=== PATIENT | male | born 1970 | race African-American/Black ===

== ENCOUNTER 2022-12-23 06:43 | Day surgery (SDC) | payer BC, SELFPAY ==
[2022-12-23] MEDS ORDERED: Ringers Lactate 1,000 ML IV ONE (07:34)
[2022-12-23] MEDS ORDERED: propofoL 200 MG/20 ML VIAL IV ONE ×3 (10:53→10:54)
[2022-12-23] MEDS ORDERED: LIDOCAINE 1% MPF 5 ML VIAL ONE (10:54)
[2022-12-23 12:01] VITALS: TEMP 97.7
[2022-12-23 12:04] VITALS: BP 112/69; O2SAT 98
== END 2022-12-23 11:50 | disposition home or self-care (01) ==
LOC: PRE 06:43 → OR 11:50
PROVIDERS: ATTEND Internal Medicine Gastroenterology
PROC: 0DBL8ZX Excision of Transverse Colon, Via Natural or Artificial Opening Endoscopic, Diagnostic (ICD-10-PCS; 2022-12-23)
PROC: 0DBM8ZX Excision of Descending Colon, Via Natural or Artificial Opening Endoscopic, Diagnostic (ICD-10-PCS; 2022-12-23)
PROC: 0DBH8ZX Excision of Cecum, Via Natural or Artificial Opening Endoscopic, Diagnostic (ICD-10-PCS; principal; 2022-12-23 08:15)
DX: Z12.11 Encounter for screening for malignant neoplasm of colon (principal); K64.8 Other hemorrhoids; K63.5 Polyp of colon
CPT/HCPCS: 88305; 45380; J2704 ×2; J2001; J7120

== ENCOUNTER 2024-04-03 12:39 | Inpatient (IN) | payer BC ==
--- OUTSIDE RECORDS SUMMARY | 2024-04-03 12:54 | XMS REPORT | Continuity of Care Document ---
Author Name Unknown Address [address] [facility] [address] [place] [address] [facility] thconnect Address [address] [facility] [address] [place] [address] Care Team Providers Care Computer Hardware Designer Name Role Phone KALINA BOBBI Nunes Primary Care Physician Unavailab Bridget Meek Attending Clinician Unavailable Javi Souza Attending Clinician Unavailabl surjit Connor RN, Gaby Woodard Attending Clinician Unavailab MILES Gatica Attending Clinician Unavailable Only, Ang Db Test Attending Clinician Unavailabl e Unknown, Attending Attending Clinician Unavailab le Doctor Unassigned, Abernathy Attending Clinician U roge Swift MD, Wes Mendoza Attending Clinician [phone] VICTOR HUGO GREEN Attending Clinician Unavailable Peter NEW, Victor Hugo Attending Clinician [phone] Navjot NEW, Lizette Attending Clinician [phone] LIZETTE MORFIN Attending Clinician Unavailable Jaspal Valles Attending Clinician Unavailable Provider, [facility] Attending Clinician Un available Miles Dos Santos Attending Clinician Bridget King Admitting Clinician Unavailable Jaspal Valles Cardiology Admitting Clinician Unavailable VICTOR HUGO GREEN Admitting Clinician Unavailable Payers Payer Name Policy Type Policy Number Effective Date Expirati on Date Source Problems Condition Name Condition Details Condition Category Status Onset Date Resolution Date Last Treatment Date Treating Clinician Comments Source No known active problems No known active problems Disease [facility] Allergies, Adverse Reactions, Alerts Allergy Name Allergy Type Status Severity Reaction(s) Onset Date Inactive Date Treating Clinician Comments Source No Known Allergie s DA Active U 07-26 00:00: 00 [facility] No Known Allergie s DA Active U 07-26 00:00: 00 [facility] NO KNOWN ALLERGIE S Drug Class Active [facility] Social History Social Habit Start Date Stop Date Quantity Comments Source Exposure to SARS-CoV-2 (event) 2022-02-06 00:00:00 2022-02-16 19:17:00 Not sure [facility] Sex Assigned At 1970 00:00:00 1970 00:00:00 [facility] Smoking Status Start Date Stop Date Source Tobacco smoking consumption unknown [facility] Medications Ordered Medication Name Filled Medication Name Start Date Stop Date Current Medication? Ordering Clinician Indication Dosage Frequency Signature (SIG) Comments Components Source ondansetron 4 mg disintegrat ing tablet 12-21 00:00: 00 Yes [id number] 4mg Take 1 tablet by mouth every 4 (four) hours as needed for Nausea and Vomiting (N/V). [facility] traMADoL 50 mg tablet 12-21 00:00: 00 Yes [id number] 50mg Take 1 tablet by mouth every 6 (six) hours as needed for Pain (scale 4-6). Indication s: acute pain [facility] bromphenira mine-pseudo ephedrine-D M (BROMFED DM) 2-30-10 mg/5 mL syrup 1- 00:00: 00 Yes [id number] 5mL Take 5 mL by mouth 4 (four) times daily as needed for Congestion /Allergies or Cold symptoms. [facility] Vital Signs Vital Name Observation Time Observation Value Comments Tory hidalgo Systolic blood pressure 2021-12-21 13:56:00 117 mm[Hg] [facility] Diastolic blood pressure 2021-12-21 13:56:00 77 mm[Hg] [facility] Heart rate 2021-12-21 13:56:00 79 /min Unive [facility] Body temperature 2021-12-21 13:56:00 36.39 Tiffanie [facility] Respiratory rate 2021-12-21 13:56:00 14 /min [facility] Body height 2021-12-21 13:56:00 177.8 cm [facility] Body weight 2021-12-21 13:56:00 108.863 kg [facility] BMI 2021-12-21 13:56:00 34.44 kg/m2 [facility] Oxygen saturation in Arterial blood by Pulse oximetry 2021-12-21 13:56:00 99 /min [facility] Diastolic blood pressure 2020-05-27 23:55:00 86 mm[Hg] [facility] Heart rate 2020-05-27 23:55:00 72 /min Unive [facility] Body temperature 2020-05-27 23:55:00 37.28 Tiffanie [facility] Respiratory rate 2020-05-27 23:55:00 18 /min [facility] Body height 2020-05-27 23:55:00 179.1 cm [facility] Body weight 2020-05-27 23:55:00 113.399 kg [facility] BMI 2020-05-27 23:55:00 35.36 kg/m2 [facility] Oxygen saturation in Arterial blood by Pulse oximetry 2020-05-27 23:55:00 95 /min [facility] Systolic blood pressure 2020-05-27 23:55:00 121 mm[Hg] [facility] Diastolic blood pressure 2020-05-27 23:55:00 86 mm[Hg] [facility] Heart rate 2020-05-27 23:55:00 72 /min [facility] Body temperature 2020-05-27 23:55:00 37.28 Tiffanie [facility] Respiratory rate 2020-05-27 23:55:00 18 /min [facility] Body height 2020-05-27 23:55:00 179.1 cm [facility] Body weight 2020-05-27 23:55:00 113.399 kg [facility] BMI 2020-05-27 23:55:00 35.36 kg/m2 [facility] Oxygen saturation in Arterial blood by Pulse oximetry 2020-05-27 23:55:00 95 /min [facility] Systolic blood pressure 2020-05-27 23:55:00 121 mm[Hg] [facility] Procedures Procedure Date / Time Performed Performing Clinicia n Source [id number] 2023-03-09 00:00:00 [facility] [id number] 2023-03-09 00:00:00 [facility] [id number] 2023-03-09 00:00:00 [facility] [id number] 2023-03-09 00:00:00 [facility] ASSIGNMENT OF BENEFITS 2022-02-17 00:17:43 Docto r Unassigned, Abernathy [facility] NH APPLY FOREARM SPLINT,STATIC 2021-12-21 15:06:28 Victor Hugo Green [facility] XR FOREARM 2 VW RIGHT 2021-12-21 14:20:00 Armen Green [facility] XR HAND 3+ VW RIGHT 2021-12-21 14:20:00 Kulwant Green [facility] CONSENT/REFUSAL FOR DIAGNOSIS AND TREATMENT 2021-12-21 13:51:39 Doctor Unassigned, Abernathy [facility] NOTICE OF PRIVACY PRACTICES 2021-12-21 13:51:19 Doctor Unassigned, Abernathy [facility] Encounters Start Date/Time End Date/Time Encounter Type Admission Type Attending Clinicians Care Facility Care Department Encounter ID Source 2023-03-07 17:11:00 2023-03-10 13:20:00 Inpatient EM Bridget King [facility] INTE.02 [id number] [facility] 2022-06-22 11:45:00 2022-06-22 11:45:00 Inpatient Javi Montgomery [facility] SURG [id number] [facility] 2022-02-17 00:00:00 2022-02-17 00:00:00 Letter (Out) Gaby Connor [facility] 1.840.114 350.1.13.10 4.2.7.2.686 [id number] [facility] 2022-02-16 19:15:00 2022-02-16 19:32:22 Outpatient MILES AC [facility] [id number] [facility] 2022-02-16 19:15:00 2022-02-16 19:30:00 Laboratory Only Only, Ang Db Test Unknown, Attending [facility] 1..840.114 350.1.13.10 4.2.7.2.686 [id number] [facility] 2022-02-16 00:00:00 2022-02-16 00:00:00 Orders Only Doctor Unassigned, Abernathy [facility] 1.2840.114 350.1.13.10 4.2.7.2.686 [id number] [facility] 2021-12-29 00:00:00 2021-12-29 00:00:00 Telephone Wes Swift [facility] 1..840.114 350.1.13.10 4.2.7.2.686 [id number] [facility] 2021-12-21 08:55:00 2021-12-21 10:20:00 Emergency X VICTOR HUGO GREEN [facility] ERT [id number] [facility] 2021-12-21 08:55:00 2021-12-21 10:20:00 Emergency Victor Hugo Green [facility] 1.840.114 350.1.13.10 4.2.7.2.686 [id number] [facility] 2021-12-21 00:00:00 2021-12-21 00:00:00 Orders Only Doctor Unassigned, Abernathy [facility] 1.2840.114 350.1.13.10 4.2.7.2.686 [id number] [facility] 2021-02-25 00:00:00 2021-02-25 00:00:00 Letter (Out) Gaby Connor [facility] 1.0.114 350.1.13.10 4.2.7.2.686 [id number] [facility] 2021-02-24 19:08:15 2021-02-24 19:23:15 Laboratory Only Only, Crow Morfin Lizette [facility] 1..114 350.1.13.10 4.2.7.2.686 [id number] [facility] 2021-02-24 19:15:00 2021-02-24 19:15:00 Outpatient LIZETTE PEREZ [facility] [id number] [facility] 2020-09-11 21:34:03 2020-09-11 21:34:03 Outpatient Javi Souza [facility] [id number] [facility] 2020-07-27 14:30:00 2020-07-27 14:30:00 Outpatient Jaspal Valles [facility]G [id number] [facility] 2020-05-27 17:31:25 2020-05-27 18:49:11 Urgent Care Provider, [facility] Pavel [facility] Office [facility] 1.0.114 350.1.13.10 4.2.7.2.686 [id number] 2020-05-27 17:31:25 2020-05-27 18:49:11 Urgent Care Provider, [facility] 1.2.840.114 350.1.13.10 4.2.7.2.686 [id number] [facility] 2020-05-27 17:40:00 2020-05-27 17:40:00 Outpatient R MILES BUTLER [facility] [id number] [facility] Results Test Description Test Time Test Comments Results Result Co mments Source PROTHROMBIN [id number] 04:52:00* Test Item Value Reference Range Interpretation Comme nts PROTHROMBIN TIME PATIENT (test code = PTP) 14.8 SECONDS 10.1-12.6 H INTERNATIONAL NORMAL RATIO (test code = INR) 1.3 0.86-1.14 H The INR is to be used only for monitoring oral anticoagulanttherap y. INDICATION INR VALUE -------1. Prophylaxis, deep venous thrombosis, including high risk surgery. 2.0 - 3.0 2. Prophylaxis, deep venous thrombosis, hip surgery, treatment for deep venous thrombosis or pulmonary prevention of systemic embolism in patients with valvular heart disease, atrial fibrillation, tissue heart valve, or acute myocardial infarction. 2.0 - 3.0 3. Mechanical prosthesis heart valves, recurrent systemic embolism. 3.0 - 4.5 PTT [id number] 04:52:00* Test Item Value Reference Range Interpretation Comme nts PTT ACTIVATED (test code = APTT) 29.2 SECONDS 27.2-37.9 CBC W/AUTO [id number] 04:37:00* Test Item Value Reference Range Interpretation Comme nts WHITE BLOOD CELL (test code = WBC) 8.3 K/MM3 3.8-9.8 N RED BLOOD CELL (test code = RBC) 4.81 M/MM3 3.95-5.67 N HEMOGLOBIN (test code = HGB) 13.4 G/DL 12.4-16.7 N HEMATOCRIT (test code = HCT) 41.8 % 35.9-49.5 N MEAN CELL VOLUME (test code = MCV) 87 fL 81.7-96.1 N MEAN CELL HGB (test code = MCH) 27.9 pg 27.6-33.2 N MEAN CELL HGB CONCETRATION (test code = MCHC) 32.1 % 32.9-35.5 L RED CELL DISTRIBUTION WIDTH (test code = RDW) 13.2 % 12.1-15.2 N PLATELET COUNT (test code = PLT) 269 K/MM3 129-368 N MEAN PLATELET VOLUME (test c ode = MPV) 9.6 fl 7.4-10.4 N NEUTROPHIL % (test code = NT%) 81.6 % 43-75 H IMMATURE GRANULOCYTE % (test code = IG%) 0.4 % 0.0-2.0 N LYMPHOCYTE % (test code = LY%) 13.4 % 14-44 L MONOCYTE % (test code = MO%) 4.6 % 4-13 N EOSINOPHIL % (test code = EO%) 0.0 % 0-6 N BASOPHIL % (test code = BA%) 0 % 0-2 N NUCLEATED RBC % (test code = NRBC%) 0.0 % 0-1.0 N NEUTROPHIL # (test code = NT#) 6.78 K/mm3 2.0-7.6 N IMMATURE GRANULOCYTE # (test code = IG#) 0.03 x10 3/uL 0-0.03 N LYMPHOCYTE # (test code = LY#) 1.11 K/mm3 1.0-3.8 N MONOCYTE # (test code = MO#) 0.38 K/mm3 0.1-0.8 N EOSINOPHIL # (test code = EO#) 0.00 K/mm3 0.0-0.2 N BASOPHIL # (test code = BA#) 0 K/mm3 0.0-0.2 N NUCLEATED RBC # (test code = NRBC#) 0.00 K/mm3 0.0-0.1 N PROTHROMBIN [id number] 13:40:00* Test Item Value Reference Range Interpretation Comme nts PROTHROMBIN TIME PATIENT (test code = PTP) 13.2 SECONDS 10.1-12.6 H INTERNATIONAL NORMAL RATIO (test code = INR) 1.2 0.86-1.14 H The INR is to be used only for monitoring oral anticoagulanttherap y. INDICATION INR VALUE -------1. Prophylaxis, deep venous thrombosis, including high risk surgery. 2.0 - 3.0 2. Prophylaxis, deep venous thrombosis, hip surgery, treatment for deep venous thrombosis or pulmonary prevention of systemic embolism in patients with valvular heart disease, atrial fibrillation, tissue heart valve, or acute myocardial infarction. 2.0 - 3.0 3. Mechanical prosthesis heart valves, recurrent systemic embolism. 3.0 - 4.5 PTT [id number] 13:40:00* Test Item Value Reference Range Interpretation Comme nts PTT ACTIVATED (test code = APTT) 33.9 SECONDS 27.2-37.9 N BASIC METABOLIC [id number] 11:55:00* Test Item Value Reference Range Interpretation Comme nts SODIUM (test code = NA) 140 MMOL/L 137-145 N POTASSIUM (test code = K) 4.4 MMOL/L 3.5-5.1 N CHLORIDE (test code = CL) 103 MMOL/L 98-107 N CARBON DIOXIDE (test code = CO2) 31 MMOL/L 22-30 H GLUCOSE (test code = GLU) 76 MG/DL 74-106 N BLOOD UREA NITROGEN (test code = BUN) 18 MG/DL 9-20 N GLOMERULAR FILTRATION RATE (test code = GFR) > 60 The Glomerular Filtration Rate is a calculated parameterbased on serum Creatinine, patient age and sex. GFR valuesless than 60 mL/min/1.73 square meters are indicative ofChronic Kidney Disease. Values less than 15 mL/min/1.73square meters indicate Kidney failure. The calculation forGFR is based on the CKD-EPI (2020) calculation. This formulais race indifferent and is the recommended formula for GFRby the National Kidney Foundation for Adults.The GFR will not calculate if the sex is unknown or if thepatient's age is <18 years. CREATININE (test code = CREAT) 1.00 MG/DL 0.66-1.25 N CALCIUM (test code = CA) 9.4 MG/DL 8.4-10.2 N BASIC METABOLIC [id number] 10:48:00* Test Item Value Reference Range Interpretation Comme nts SODIUM (test code = NA) 140 MMOL/L 137-145 N POTASSIUM (test code = K) 4.0 MMOL/L 3.5-5.1 N CHLORIDE (test code = CL) 101 MMOL/L 98-107 N CARBON DIOXIDE (test code = CO2) 29 MMOL/L 22-30 N GLUCOSE (test code = GLU) 85 MG/DL 74-106 N BLOOD UREA NITROGEN (test code = BUN) 16 MG/DL 9-20 N GLOMERULAR FILTRATION RATE (test code = GFR) > 60 The Glomerular Filtration Rate is a calculated parameterbased on serum Creatinine, patient age and sex. GFR valuesless than 60 mL/min/1.73 square meters are indicative ofChronic Kidney Disease. Values less than 15 mL/min/1.73square meters indicate Kidney failure. The calculation forGFR is based on the CKD-EPI (2020) calculation. This formulais race indifferent and is the recommended formula for GFRby the National Kidney Foundation for Adults.The GFR will not calculate if the sex is unknown or if thepatient's age is <18 years. CREATININE (test code = CREAT) 1.00 MG/DL 0.66-1.25 N CALCIUM (test code = CA) 9.6 MG/DL 8.4-10.2 N RECOLLECTION NEEDED ON 03/08/23 AT 0654 BY [id number]: QNSNOTIFIED PATIENT CARE STAFF: [id number] 10:48:00* Test Item Value Reference Range Interpretation Comme nts MAGNESIUM (test code = MAG) 1.9 MG/DL 1.6-2.3 N RECOLLECTION NEEDED ON 03/08/23 AT 0654 BY [id number]: QNSNOTIFIED PATIENT CARE STAFF: KELBY.SCBC W/AUTO [id number] 06:48:00* Test Item Value Reference Range Interpretation Comme nts WHITE BLOOD CELL (test code = WBC) 5.1 K/MM3 3.8-9.8 N RED BLOOD CELL (test code = RBC) 4.98 M/MM3 3.95-5.67 N HEMOGLOBIN (test code = HGB) 14.4 G/DL 12.4-16.7 N HEMATOCRIT (test code = HCT) 44.2 % 35.9-49.5 N MEAN CELL VOLUME (test code = MCV) 89 fL 81.7-96.1 N MEAN CELL HGB (test code = MCH) 28.9 pg 27.6-33.2 N MEAN CELL HGB CONCETRATION (test code = MCHC) 32.6 % 32.9-35.5 L RED CELL DISTRIBUTION WIDTH (test code = RDW) 13.5 % 12.1-15.2 N PLATELET COUNT (test code = PLT) 240 K/MM3 129-368 N MEAN PLATELET VOLUME (test c ode = MPV) 9.9 fl 7.4-10.4 N NEUTROPHIL % (test code = NT%) 52.8 % 43-75 N IMMATURE GRANULOCYTE % (test code = IG%) 0.2 % 0.0-2.0 N LYMPHOCYTE % (test code = LY%) 33.2 % 14-44 N MONOCYTE % (test code = MO%) 12.2 % 4-13 N EOSINOPHIL % (test code = EO%) 1.4 % 0-6 N BASOPHIL % (test code = BA%) 0.2 % 0-2 N NUCLEATED RBC % (test code = NRBC%) 0.0 % 0-1.0 N NEUTROPHIL # (test code = NT#) 2.69 K/mm3 2.0-7.6 N IMMATURE GRANULOCYTE # (test code = IG#) 0.01 x10 3/uL 0-0.03 N LYMPHOCYTE # (test code = LY#) 1.69 K/mm3 1.0-3.8 N MONOCYTE # (test code = MO#) 0.62 K/mm3 0.1-0.8 N EOSINOPHIL # (test code = EO#) 0.07 K/mm3 0.0-0.2 N BASOPHIL # (test code = BA#) 0.01 K/mm3 0.0-0.2 N NUCLEATED RBC # (test code = NRBC#) 0.00 K/mm3 0.0-0.1 N [id number] 01:35:00* Test Item Value Reference Range Interpretation Comme nts TROPONIN-I (test code = TROPI) < 0.012 NG/ML 0.012-0.033 L [id number] 21:12:00* Test Item Value Reference Range Interpretation Comme nts TROPONIN-I (test code = TROPI) 0.016 NG/ML 0.012-0.033 BASIC METABOLIC [id number] 15:41:00* Test Item Value Reference Range Interpretation Comme nts SODIUM (test code = NA) 140 MMOL/L 137-145 N POTASSIUM (test code = K) 4.2 MMOL/L 3.5-5.1 N CHLORIDE (test code = CL) 104 MMOL/L 98-107 N CARBON DIOXIDE (test code = CO2) 29 MMOL/L 22-30 N ANION GAP (test code = GAP) 11 MMOL/L 14-24 L GLUCOSE (test code = GLU) 83 MG/DL 74-106 N BLOOD UREA NITROGEN (test code = BUN) 10 MG/DL 9-20 N GLOMERULAR FILTRATION RATE (test code = GFR) > 60 The Glomerular Filtration Rate is a calculated parameterbased on serum Creatinine, patient age and sex. GFR valuesless than 60 mL/min/1.73 square meters are indicative ofChronic Kidney Disease. Values less than 15 mL/min/1.73square meters indicate Kidney failure. The calculation forGFR is based on the CKD-EPI (2020) calculation. This formulais race indifferent and is the recommended formula for GFRby the National Kidney Foundation for Adults.The GFR will not calculate if the sex is unknown or if thepatient's age is <18 years. CREATININE (test code = CREAT) 1.00 MG/DL 0.66-1.25 N CALCIUM (test code = CA) 9.3 MG/DL 8.4-10.2 N NT PRO-BRAIN NATRIURETIC [id number] 15:41:00* Test Item Value Reference Range Interpretation Comme nts NT PRO-BRAIN NATRIURETIC PEPTI (test code = PROBNP) 1150.0 pg/mL INTERPRETATION O F RESULTS Results of this test should be used in accordance with the appropriate clinical guidelines and in conjunction with clinical presentation and other diagnostic tests. Clinical guidelines recommend using natriuretic peptides in both Emergency Department (ED) and outpatient settings for diagnosis or exclusion of heart failure (HF). The performance of the [facility] NT-proBNP II test was evaluated separately in each of these settings using published age-independent and age-dependent cutoffs. EMERGENCY DEPARTMENT SETTINGS/INPATIENT: For patients presenting to the ED settings with acute or worsening dyspnea and clinical suspicion of HF, the [facility] NT-proBNP II test results should be interpreted as indicated in the table below. NT-pro BNP II Test Age Group Interpretation of Results Results (pg/mL) <300 All Negative: Heart Failure Unlikely -->=300 to <450 22-<50 [place]: Result >=300 to <900 50-<75 Indeterminate >=300 to <1800 >=75 - Consider other causes of NT-proBNP elevation ---------------->=450 22-<50 >=900 50-<75 Positive: Heart Failure likely >=1800 >=75 OUTPAT IENT SETTINGS: In the outpatient settings, the optimal use of natriuretic peptides is to exclude HF. Therefore, a lower rule-out cutoff which increases sensitivity and negative predictive value is needed, as patients can present with limited, less acute HF symptoms. For ambulatory patients presenting to outpatient facilities with clinical suspicion of HF not previously diagnosed and at least one sign, symptom or risk factor for HF, the VITROSNT-proBNP II test results should be interpreted as indicatedin the table below. NT-pro BNP II Test Age Group Interpretation of Results Results (pg/mL) <125 All Negative: Heart Failure Unlikely ---------------->=125 All Consider Heart Failure as well as other causes* of NT-proBNP elevation. [id number] 15:41:00* Test Item Value Reference Range Interpretation Comme [facility] TROPONIN-I (test code = TROPI) < 0.012 NG/ML 0.012-0.033 L PROTHROMBIN [id number] 15:29:00* Test Item Value Reference Range Interpretation Comme [facility] PROTHROMBIN TIME PATIENT (test code = PTP) 12.2 SECONDS 10.1-12.6 N INTERNATIONAL NORMAL RATIO (test code = INR) 1.1 0.86-1.14 N The INR is to be used only for monitoring oral anticoagulanttherap y. INDICATION INR VALUE -------1. Prophylaxis, deep venous thrombosis, including high risk surgery. 2.0 - 3.0 2. Prophylaxis, deep venous thrombosis, hip surgery, treatment for deep venous thrombosis or pulmonary prevention of systemic embolism in patients with valvular heart disease, atrial fibrillation, tissue heart valve, or acute myocardial infarction. 2.0 - 3.0 3. Mechanical prosthesis heart valves, recurrent systemic embolism. 3.0 - 4.5 PTT [id number] 15:29:00* Test Item Value Reference Range Interpretation Comme nts PTT ACTIVATED (test code = APTT) 31.8 SECONDS 27.2-37.9 N [id number] 15:29:00* Test Item Value Reference Range Interpretation Comme nts D-DIMER (test code = DDIMER) 240 ng/mLFEU 0-499 N Negative Predict tenisha Value cutoff for DVT & PE: < 500 ng/mL FEUInterpretation: A value of < 500 ng/mL FEU has a NegativePredictive Value in ruling out a DVT or PE diagnosis.A value of 500 ng/mL or greater is considered Positive.Positive result cannot be used for the diagnosis of DVT andPE without using of standard radiological procedures. CBC W/O [id number] 15:10:00* Test Item Value Reference Range Interpretation Comme nts WHITE BLOOD CELL (test code = WBC) 5.1 K/MM3 3.8-9.8 N RED BLOOD CELL (test code = RBC) 4.80 M/MM3 3.95-5.67 N HEMOGLOBIN (test code = HGB) 13.6 G/DL 12.4-16.7 N HEMATOCRIT (test code = HCT) 41.5 % 35.9-49.5 N MEAN CELL VOLUME (test code = MCV) 87 fL 81.7-96.1 N MEAN CELL HGB (test code = MCH) 28.3 pg 27.6-33.2 N MEAN CELL HGB CONCETRATION (test code = MCHC) 32.8 % 32.9-35.5 L RED CELL DISTRIBUTION WIDTH (test code = RDW) 13.3 % 12.1-15.2 N PLATELET COUNT (test code = PLT) 273 K/MM3 129-368 N NEUTROPHIL # (test code = NT#) 2.33 K/mm3 2.0-7.6 N IMMATURE GRANULOCYTE # (test code = IG#) 0.02 x10 3/uL 0-0.03 N LYMPHOCYTE # (test code = LY#) 2.03 K/mm3 1.0-3.8 N MONOCYTE # (test code = MO#) 0.66 K/mm3 0.1-0.8 N EOSINOPHIL # (test code = EO#) 0.07 K/mm3 0.0-0.2 N BASOPHIL # (test code = BA#) 0.01 K/mm3 0.0-0.2 N NUCLEATED RBC # (test code = NRBC#) 0.00 K/mm3 0.0-0.1 N - XR CHEST [id number] 13:24:00 [facility] 1970 Sex: M Patient Name: MIGUEL DIAZ Unit No: [id number] EXAMS: CPT CODE: [id number] XR CHEST 1V [id number] EXAM: XR Chest 1 View INDICATION: Chest Pain LOCATION: H50 COMPARISON: None available. TECHNIQUE: Frontal view of the chest was obtained. FINDINGS: Left basilar airspace opacities are noted. Lungs are otherwise clear. There is no pleural effusion or pneumothorax. The cardiomediastinal silhouette is unremarkable. No acute osseous abnormality is identified. IMPRESSION: Left basilar airspace opacities which could reflect subsegmental atelectasis versus developing pneumonia. ElectronicallySigned by Amy Stein MD on 03/07/2023 at 1324 Reported and signed by: Amy Stein MD CC: Jaspal Valles MD; Mik NUNEZ Technologist: NATHAN ELLIS Transcrpt Date/Tm/Trnsp: 03/07/2023 (8588) [email or web address] Orig Print D/T: S: 03/07/2023 ([id number]) [facility] NAME: MIGUEL DIAZ [address] PHYS: [place] [address] : 1970 AGE: 52 SEX: M LOC: Z[facility]ERS PHONE #: [phone] EXAM DATE: 03/07/2023 STATUS: REG ER FAX #: [phone] RADIOLOGY NO: PAGE 1 Signed ReportBASIC METABOLIC [id number] 04:51:00* Test Item Value Reference Range Interpretation Comme nts SODIUM (test code = NA) 137 MMOL/L 137-145 N POTASSIUM (test code = K) 3.6 MMOL/L 3.5-5.1 N CHLORIDE (test code = CL) 104 MMOL/L 98-107 N CARBON DIOXIDE (test code = CO2) 27 MMOL/L 22-30 N ANION GAP (test code = GAP) 10 MMOL/L 14-24 L GLUCOSE (test code = GLU) 112 MG/DL 74-106 H BLOOD UREA NITROGEN (test code = BUN) 16 MG/DL 9-20 N GLOMERULAR FILTRATION RATE (test code = GFR) > 60 Reporting units: ml/min/1.73 m2 (Modified MDRD Formula)Reference Range: > or = 60 ml/min/1.73 m2 CREATININE (test code = CREAT) 1.20 MG/DL 0.66-1.25 N CALCIUM (test code = CA) 8.8 MG/DL 8.4-10.2 N CBC W/AUTO [id number] 04:34:00* Test Item Value Reference Range Interpretation Comme nts WHITE BLOOD CELL (test code = WBC) 5.8 K/MM3 3.8-9.8 N RED BLOOD CELL (test code = RBC) 4.78 M/MM3 3.95-5.67 N HEMOGLOBIN (test code = HGB) 13.4 G/DL 12.4-16.7 N HEMATOCRIT (test code = HCT) 43.2 % 35.9-49.5 N MEAN CELL VOLUME (test code = MCV) 90 fL 81.7-96.1 N MEAN CELL HGB (test code = MCH) 28.0 pg 27.6-33.2 N MEAN CELL HGB CONCETRATION (test code = MCHC) 31.0 % 32.9-35.5 L RED CELL DISTRIBUTION WIDTH (test code = RDW) 13.5 % 12.1-15.2 N PLATELET COUNT (test code = PLT) 237 K/MM3 129-368 N MEAN PLATELET VOLUME (test c ode = MPV) 9.6 fl 7.4-10.4 N NEUTROPHIL % (test code = NT%) 59.0 % 43-75 N IMMATURE GRANULOCYTE % (test code = IG%) 0.2 % 0.0-2.0 N LYMPHOCYTE % (test code = LY%) 29.7 % 14-44 N MONOCYTE % (test code = MO%) 9.2 % 4-13 N EOSINOPHIL % (test code = EO%) 1.6 % 0-6 N BASOPHIL % (test code = BA%) 0.3 % 0-2 N NUCLEATED RBC % (test code = NRBC%) 0.0 % 0-1.0 N NEUTROPHIL # (test code = NT#) 3.42 K/mm3 2.0-7.6 N IMMATURE GRANULOCYTE # (test code = IG#) 0.01 x10 3/uL 0-0.03 N LYMPHOCYTE # (test code = LY#) 1.72 K/mm3 1.0-3.8 N MONOCYTE # (test code = MO#) 0.53 K/mm3 0.1-0.8 N EOSINOPHIL # (test code = EO#) 0.09 K/mm3 0.0-0.2 N BASOPHIL # (test code = BA#) 0.02 K/mm3 0.0-0.2 N NUCLEATED RBC # (test code = NRBC#) 0.00 K/mm3 0.0-0.1 N PROTHROMBIN [id number] 16:01:00* Test Item Value Reference Range Interpretation Comme nts PROTHROMBIN TIME PATIENT (test code = PTP) 12.4 9.5-12.7 N INTERNATIONAL NORMAL RATIO (test code = INR) 1.1 0.86-1.14 N The INR is to be used only for monitoring oral anticoagulanttherapy. INDICATION INR VALUE 1. Prophylaxis, deep venous thrombosis, including high risk surgery. 2.0 - 3.0 2. Prophylaxis, deep venous thrombosis, hip surgery, treatment for deep venous thrombosis or pulmonary prevention of systemic embolism in patients with valvular heart disease, atrial fibrillation, tissue heart valve, or acute myocardial infarction. 2.0 - 3.0 3. Mechanical prosthesis heart valves, recurrent systemic embolism. 3.0 - 4.5 Comments to Racecourse Barrier Attendant: NURSE WILL BRING SPECIMEN TO LABPTT ACTIVATED 2020-09-09 16:01:00* Test Item Value Reference Range Interpretation Comme nts PTT ACTIVATED (test code = APTT) 32.3 SECONDS 25.1-36.5 N Comments to Racecourse Barrier Attendant: NURSE WILL BRING SPECIMEN TO LABBASIC METABOLIC PANEL 2020-09-09 15:55:00* Test Item Value Reference Range Interpretation Comme nts SODIUM (test code = NA) 140 MMOL/L 137-145 N POTASSIUM (test code = K) 4.2 MMOL/L 3.5-5.1 N CHLORIDE (test code = CL) 101 MMOL/L 98-107 N CARBON DIOXIDE (test code = CO2) 32 MMOL/L 22-30 H GLUCOSE (test code = GLU) 84 MG/DL 74-106 N BLOOD UREA NITROGEN (test code = BUN) 12 MG/DL 9-20 N GLOMERULAR FILTRATION RATE (test code = GFR) > 60 Reporting units: ml/min/1.73 m2 (Modified MDRD Formula)Reference Range: > or = 60 ml/min/1.73 m2 CREATININE (test code = CREAT) 1.30 MG/DL 0.66-1.25 H CALCIUM (test code = CA) 9.2 MG/DL 8.4-10.2 N Comments to Racecourse Barrier Attendant: NURSE WILL BRING SPECIMEN TO LABIs this a LINE draw? N [id number] 15:55:00* Test Item Value Reference Range Interpretation Comme nts MAGNESIUM (test code = MAG) 1.9 MG/DL 1.6-2.3 N Comments to Racecourse Barrier Attendant: NURSE WILL BRING SPECIMEN TO LABIs this a LINE draw? N CBC W/AUTO [id number] 15:37:00* Test Item Value Reference Range Interpretation Comme nts WHITE BLOOD CELL (test code = WBC) 4.2 K/MM3 3.8-9.8 N RED BLOOD CELL (test code = RBC) 5.16 M/MM3 3.95-5.67 N HEMOGLOBIN (test code = HGB) 14.6 G/DL 12.4-16.7 N HEMATOCRIT (test code = HCT) 46.6 % 35.9-49.5 N MEAN CELL VOLUME (test code = MCV) 90 fL 81.7-96.1 N MEAN CELL HGB (test code = MCH) 28.3 pg 27.6-33.2 N MEAN CELL HGB CONCETRATION (test code = MCHC) 31.3 % 32.9-35.5 L RED CELL DISTRIBUTION WIDTH (test code = RDW) 13.5 % 12.1-15.2 N PLATELET COUNT (test code = PLT) 268 K/MM3 129-368 N MEAN PLATELET VOLUME (test c ode = MPV) 9.3 fl 7.4-10.4 N NEUTROPHIL % (test code = NT%) 45.2 % 43-75 N IMMATURE GRANULOCYTE % (test code = IG%) 0.2 % 0.0-2.0 N LYMPHOCYTE % (test code = LY%) 40.8 % 14-44 N MONOCYTE % (test code = MO%) 11.5 % 4-13 N EOSINOPHIL % (test code = EO%) 2.1 % 0-6 N BASOPHIL % (test code = BA%) 0.2 % 0-2 N NUCLEATED RBC % (test code = NRBC%) 0.0 % 0-1.0 N NEUTROPHIL # (test code = NT#) 1.89 K/mm3 2.0-7.6 L IMMATURE GRANULOCYTE # (test code = IG#) 0.01 x10 3/uL 0-0.03 N LYMPHOCYTE # (test code = LY#) 1.71 K/mm3 1.0-3.8 N MONOCYTE # (test code = MO#) 0.48 K/mm3 0.1-0.8 N EOSINOPHIL # (test code = EO#) 0.09 K/mm3 0.0-0.2 N BASOPHIL # (test code = BA#) 0.01 K/mm3 0.0-0.2 N NUCLEATED RBC # (test code = NRBC#) 0.00 K/mm3 0.0-0.1 N Comments to Racecourse Barrier Attendant: NURSE WILL BRING SPECIMEN TO LABIs this a LINE draw? N COVID 19 Asymptomatic IH [id number] 14:02:00* Test Item Value Reference Range Interpretation Comme nts COVID 19 Asymptomatic IH AG (test code = COVNONPUIAG) NEGATIVE Negative "Negative result s from patients with symptom onset beyondfive days, should be treated as presumptive, andconfirmation with a molecular assay, if necessary forpatient management may be performed. Negative results do notrule out COVID-19 and should not be used as the sole basisfor treatment or patient management decisions, includinginfection control decisions. Negative results should beconsidered in the context of a patients recent exposures,history, and the presence of clinical signs and symptomsconsistent with COVID-19.This test detects both viable andnon-viable SARS-CoV and SARS CoV-2.Test performance dependson the amount of virus (antigen) in the sample." BASIC METABOLIC [id number] 05:52:00* Test Item Value Reference Range Interpretation Comme nts SODIUM (test code = NA) 140 MMOL/L 137-145 N POTASSIUM (test code = K) 4.3 MMOL/L 3.5-5.1 N CHLORIDE (test code = CL) 99 MMOL/L 98-107 N CARBON DIOXIDE (test code = CO2) 32 MMOL/L 22-30 H GLUCOSE (test code = GLU) 102 MG/DL 74-106 N BLOOD UREA NITROGEN (test code = BUN) 12 MG/DL 9-20 N GLOMERULAR FILTRATION RATE (test code = GFR) > 60 Reporting units: ml/min/1.73 m2 (Modified MDRD Formula)Reference Range: > or = 60 ml/min/1.73 m2 CREATININE (test code = CREAT) 1.30 MG/DL 0.66-1.25 H CALCIUM (test code = CA) 9.3 MG/DL 8.4-10.2 N LIPID PROFILE (CORONARY RISK)2020-07-27 05:52:00* Test Item Value Reference Range Interpretation Comme nts TRIGLYCERIDES (test code = TRIG) 73 MG/DL TRIGLYCERIDES REFERENCE RANGE:Normal: <150 mg/dLBorderline High: 150-199 mg/dLHigh: 200-499 mg/dLVery High: >=500 mg/dL CHOLESTEROL (test code = CHOL) 227 MG/DL <200 HDL CHOLESTEROL (test code = HDL) 52 MG/DL 40-59 N LIPOPROTEIN LDL (test code = LDL) 152 MG/DL 0-99 H OPTIMAL......... <100 mg/dLNEAR OPTIMAL/ABOVE OPTIMAL.........100-12 9 mg/dL BORDERLINE HIGH.........130-159 mg/dL HIGH.........160-189 mg/dL VERY HIGH.........>/= 190 mg/dL [id number] 05:52:00* Test Item Value Reference Range Interpretation Comme nts MAGNESIUM (test code = MAG) 2.1 MG/DL 1.6-2.3 N PROTHROMBIN [id number] 05:45:00* Test Item Value Reference Range Interpretation Comme nts PROTHROMBIN TIME PATIENT (test code = PTP) 12.5 9.5-12.7 N INTERNATIONAL NORMAL RATIO (test code = INR) 1.1 0.86-1.14 N The INR is to be used only for monitoring oral anticoagulanttherapy. INDICATION INR VALUE 1. Prophylaxis, deep venous thrombosis, including high risk surgery. 2.0 - 3.0 2. Prophylaxis, deep venous thrombosis, hip surgery, treatment for deep venous thrombosis or pulmonary prevention of systemic embolism in patients with valvular heart disease, atrial fibrillation, tissue heart valve, or acute myocardial infarction. 2.0 - 3.0 3. Mechanical prosthesis heart valves, recurrent systemic embolism. 3.0 - 4.5 PTT [id number] 05:45:00* Test Item Value Reference Range Interpretation Comme [facility] PTT ACTIVATED (test code = APTT) 33.7 SECONDS 25.1-36.5 N BASIC METABOLIC [id number] 05:42:00* Test Item Value Reference Range Interpretation Comme nts SODIUM (test code = NA) 140 MMOL/L 137-145 N POTASSIUM (test code = K) 4.3 MMOL/L 3.5-5.1 N CHLORIDE (test code = CL) 99 MMOL/L 98-107 N CARBON DIOXIDE (test code = CO2) 32 MMOL/L 22-30 H GLUCOSE (test code = GLU) 102 MG/DL 74-106 N BLOOD UREA NITROGEN (test code = BUN) 12 MG/DL 9-20 N GLOMERULAR FILTRATION RATE (test code = GFR) > 60 Reporting units: ml/min/1.73 m2 (Modified MDRD Formula)Reference Range: > or = 60 ml/min/1.73 m2 CREATININE (test code = CREAT) 1.30 MG/DL 0.66-1.25 H CALCIUM (test code = CA) 9.3 MG/DL 8.4-10.2 N LIPID PROFILE (CORONARY RISK)2020-07-27 05:42:00* Test Item Value Reference Range Interpretation Comme nts TRIGLYCERIDES (test code = TRIG) 73 MG/DL TRIGLYCERIDES REFERENCE RANGE:Normal: <150 mg/dLBorderline High: 150-199 mg/dLHigh: 200-499 mg/dLVery High: >=500 mg/dL CHOLESTEROL (test code = CHOL) 227 MG/DL <200 HDL CHOLESTEROL (test code = HDL) 52 MG/DL 40-59 N LIPOPROTEIN LDL (test code = LDL) MG/DL 0-99 [id number] 05:42:00* Test Item Value Reference Range Interpretation Comme nts MAGNESIUM (test code = MAG) 2.1 MG/DL 1.6-2.3 N CBC W/AUTO [id number] 05:30:00* Test Item Value Reference Range Interpretation Comme nts WHITE BLOOD CELL (test code = WBC) 7.5 K/MM3 3.8-9.8 N RED BLOOD CELL (test code = RBC) 5.69 M/MM3 3.95-5.67 H HEMOGLOBIN (test code = HGB) 16.1 G/DL 12.4-16.7 N HEMATOCRIT (test code = HCT) 50.3 % 35.9-49.5 H MEAN CELL VOLUME (test code = MCV) 88 fL 81.7-96.1 N MEAN CELL HGB (test code = MCH) 28.3 pg 27.6-33.2 N MEAN CELL HGB CONCETRATION (test code = MCHC) 32.0 % 32.9-35.5 L RED CELL DISTRIBUTION WIDTH (test code = RDW) 13.2 % 12.1-15.2 N PLATELET COUNT (test code = PLT) 286 K/MM3 129-368 N MEAN PLATELET VOLUME (test c ode = MPV) 9.1 fl 7.4-10.4 N NEUTROPHIL % (test code = NT%) 61.6 % 43-75 N IMMATURE GRANULOCYTE % (test code = IG%) 0.1 % 0.0-2.0 N LYMPHOCYTE % (test code = LY%) 27.1 % 14-44 N MONOCYTE % (test code = MO%) 10.4 % 4-13 N EOSINOPHIL % (test code = EO%) 0.7 % 0-6 N BASOPHIL % (test code = BA%) 0.1 % 0-2 N NUCLEATED RBC % (test code = NRBC%) 0.0 % 0-1.0 N NEUTROPHIL # (test code = NT#) 4.60 K/mm3 2.0-7.6 N IMMATURE GRANULOCYTE # (test code = IG#) 0.01 x10 3/uL 0-0.03 N LYMPHOCYTE # (test code = LY#) 2.03 K/mm3 1.0-3.8 N MONOCYTE # (test code = MO#) 0.78 K/mm3 0.1-0.8 N EOSINOPHIL # (test code = EO#) 0.05 K/mm3 0.0-0.2 N BASOPHIL # (test code = BA#) 0.01 K/mm3 0.0-0.2 N NUCLEATED RBC # (test code = NRBC#) 0.00 K/mm3 0.0-0.1 N COVID 19 Asymptomatic IH [id number] 04:47:00* Test Item Value Reference Range Interpretation Comme nts COVID 19 Asymptomatic IH AG (test code = COVNONPUIAG) NEGATIVE Negative "Negative result s from patients with symptom onset beyondfive days, should be treated as presumptive, andconfirmation with a molecular assay, if necessary forpatient management may be performed. Negative results do notrule out COVID-19 and should not be used as the sole basisfor treatment or patient management decisions, includinginfection control decisions. Negative results should beconsidered in the context of a patients recent exposures,history, and the presence of clinical signs and symptomsconsistent with COVID-19.This test detects both viable andnon-viable SARS-CoV and SARS CoV-2.Test performance dependson the amount of virus (antigen) in the sample." Notes Date/Time Note Provider Source 2023-03-15 07:52:00 [id number] [place] [address] PATIENT NAME: MIGUEL DIAZ ADMIT DATE: 03/07/23 ACCOUNT NO: [id number] ROOM NO: Z.363 AGE: 52 REPORT TYPE: 360 - QUERY RESPONSE DOCUMENT SEX: M ADMITTING PHYSICIAN:Bridget King MD ATTENDING PHYSICIAN:Bridget King MD Provider Query QUERY TEXT: Specificity Heart Failure 360MD Query related questions should be directed to: [facility] Coding Query Helpline The medical record reflects the diagnosis of ''heart failure'' (e.g. Congestive, left, etc.) in the [Insert source document(s) and date(s)], and pertinent studies for type (e.g. echocardiogram, cardiac catheterization, abnormal EF) or pertinent clinical indicators for acuity (e.g. Elevated BNP, IV diuretics, abnormal imaging studies, etc.) Based on your clinical judgment, can you further clarify the type and acuity of the heart failure that represents the clinical indicators listed below? The patient's Clinical Indicators include: 1.Atrial flutter 2.Chest pain Hospitalist Discharge Summary 03/10/2023 ED PHYSICIAN RECORD 03/07/2023 (1) Secondary Impressions: Atrial flutter, CHF (congestive heart failure) NT PRO-BRAIN NATRIURETIC PEPTI 03/07/2023 15:02 NT PRO-BRAIN NATRIURETIC PEPTI (pg/mL) 1150.0 Peripheral edema: Hospitalist History and Physical 03/07/2023 (1) Furosemide 40 mg/4 mL Inj MAR Options provided: -- Systolic, Please specify acuity. -- Diastolic, Please specify acuity. -- Systolic and diastolic, Please specify acuity. -- Left Ventricular Failure -- Biventricular Heart Failure -- High Output Heart Failure -- Right Heart Failure, Please specify acuity and if it is due to left heart failure. -- End Stage Heart Failure -- Other - I will add my own diagnosis -- Dismiss - Not applicable / Not valid -- Dismiss - Clinically unable to determine / Unknown -- Assign to another provider QUERY RESPONSE: No CHF Query created by: JENNIFER MIX on 03/12/2023 6:53 AM at 0752 PATIENT NAME: MIGUEL DIAZ [facility] 2023-03-11 06:18:00 [id number] [place] [address] PATIENT NAME: MIGUEL DIAZ ADMIT DATE: 03/07/23 ACCOUNT NO: [id number] ROOM NO: Z.363 AGE: 52 REPORT TYPE: eTRANSESOPHAGEAL ECHO SEX: M ADMITTING PHYSICIAN:Bridget King MD ATTENDING PHYSICIAN:Bridget King MD *[facility]* [address] [place] [address] Transesophageal Echocardiogram Patient: Miguel Diaz Study Date: 03/09/2023 BP: Location: [facility] URN: [id number] : 1970 Age: 52 Height: 70 in / 177.8 cm Gender: M Weight: 238.5 lb / 108.4 kg BMI/BSA: 34.3 kg/m 2 / 2.35 m 2 *Ordering Physician: * Javi Souza MD *Interpreting Physician: * Javi Souza MD *Natural Remedy Consultant: * Aundrea Burris Indications: A FLUTTER. Study data: Consent: The risks, benefits, and alternatives to the procedure were explained to the patient and informed consent was obtained. Procedure: Initial setup: The patient was brought to the laboratory in the fasting state.Intravenous access was obtained. Surface ECG leads and pulse oximetric signals were monitored. Sedation. Moderate sedation was administered by cardiology staff. Transesophageal echocardiography was performed. Topical anesthesia was obtained using viscous lidocaine. A transesophageal probe was inserted by the attending intelligence clerk without difficulty. Images were obtained using a [employer] cardiac ultrasound machine. Image quality was adequate. Complete 2D, complete spectral Doppler, and color Doppler. Location: Catheterization laboratory. Patient status: Inpatient. Patient room number: 01. Study status: Routine. Study completion: The patient tolerated the procedure well. There were no complications. PATIENT NAME: MIGUEL DIAZ [id number] [place] [address] PATIENT NAME: MIGUEL DIAZ ADMIT DATE: 03/07/23 ACCOUNT NO: [id number] ROOM NO: [facility] AGE: 52 REPORT TYPE: eTRANSESOPHAGEAL ECHO SEX: M ADMITTING PHYSICIAN:Bridget King MD ATTENDING PHYSICIAN:Bridget King MD Findings Left ventricle: The cavity size is normal. Systolic function is normal. Right ventricle: The cavity size is normal. Systolic function is normal. Left atrium: The atrium is normal in size. The appendage is well visualized and of normal size. There is no evidence of a thrombus in the atrial cavity or appendage. No spontaneous echo contrast is observed. Atrial septum: No defect or patent foramen ovale is identified. Doppler and echo contrast study shows no stkwj-ol-pfnn atrial level shunt. Aorta: Aortic root: The aortic root is normal in size. There is no atheroma. There is no evidence for aneurysm. There is no evidence for dissection. Aortic valve: The valve is structurally normal. The valve is trileaflet. Cusp separation is normal. There is no evidence of stenosis. There is trivial regurgitation. Mitral valve: The valve is structurally normal. There is no evidence of a vegetation. There is no evidence of stenosis. There is mild regurgitation. Tricuspid valve: The valve is structurally normal. There is no evidence of a vegetation. There is no evidence of stenosis. There is trivial regurgitation. Pulmonic valve: Not well visualized. There is no evidence of stenosis. There is no regurgitation. Pericardium: There is no pericardial effusion. Conclusions Summary: 1. Left ventricle: The cavity size is normal. Systolic function is normal. 2. Left atrium: There is no evidence of a thrombus in the atrial cavity or appendage. No spontaneous echo contrast is observed. 3. Atrial septum: No defect or patent foramen ovale is identified. Doppler and echo contrast study shows no tbwvh-lv-nzti atrial level shunt. PATIENT NAME: MIGUEL DIAZ [id number] [place] [address] PATIENT NAME: MIGUEL DIAZ ADMIT DATE: 03/07/23 ACCOUNT NO: [id number] ROOM NO: Z.363 AGE: 52 REPORT TYPE: eTRANSESOPHAGEAL ECHO SEX: M ADMITTING PHYSICIAN:Bridget King MD ATTENDING PHYSICIAN:Bridget King MD 4. Mitral valve: There is no evidence of a vegetation. 5. Tricuspid valve: There is no evidence of a vegetation. Prepared and electronically signed by Javi Souza MD 03/11/2023 06:18 at 0618 PATIENT NAME: MIGUEL DIAZ [facility] 2023-03-10 10:40:00 [facility] ([facility]) Hospitalist Discharge Summary REPORT#:[id number] REPORT STATUS: Signed REPORT INITIALIZATION DATE:03/10/23 TIME: 1040 PATIENT: MIGUEL DIAZ UNIT #: [id number] ROOM/BED: [address] : [birth year] AGE: 52 SEX: M ATTEND: Bridget King MD ADM AUTHOR: Keyon Boyd DO R3 REPT SERVICE DT/TIME: 03/10/23 1040 * ALL edits or amendments must be made on the electronic/computer document * Keyon Boyd 03/10/23 1040: General Information Problem List/A P: 1. Atrial flutter 2. Chest pain 3. HLD (hyperlipidemia) Date of admission: Date of admission: 03/07/23 Discharge date: 03/10/23 Admission diagnosis: A-Flutter s/p ablation with Dr. Souza Discharge diagnosis: As above Hospital course: Mr. Diaz is a pleasant 52 year old male who presents with episodic chest pain and a history of atrial flutter s/p ablation x1 with Dr. Souza approx 2 years ago who was admitted for a-flutter with another ablation done with Dr. Souza that was successful. Dr. Souza also changed his sotalol to Metorprolol Succinate. Pt is stable to be discharged home. Instructed patient to f/u with his PCP and intelligence clerk. Rx has been sent by Dr. Souza. Addressed all questions and concerns. Consultants: cardiology, electrophysiology Pt. condition on discharge: stable Allergies: Allergies: No Known Allergies (Coded, 07/26/20) Med Rec Med Rec Discharge meds: Stop taking the following medications: SOTALOL (BETAPACE) 160 MG TAB 160 MILLIGRAM ORAL TWICE DAILY. Continue taking these medications: ATORVASTATIN (LIPITOR) 40 MG TAB 40 MILLIGRAM ORAL DAILY. ASPIRIN (ASPIRIN) 325 MG TAB 325 MILLIGRAM ORAL DAILY. Start taking the following new medications: METOPROLOL SUCC XL (TOPROL XL) 25 MG TAB.SR.24H 25 MILLIGRAM ORAL DAILY. Qty = 90 Refills = 1 Objective VS/I O Last Documented: Result Date Time Pulse Ox 96 03/10 948 FiO2 21 03/10 948 O2 Delivery Room air 03/10 948 Temp 97.2 03/10 733 B/P 108/71 03/10 702 B/P Mean 84 03/10 702 Pulse 70 03/10 702 Resp 17 03/10 702 24 hour I O ending at 0700: 03/10 1900 Intake Total 300 Output Total Balance 300 Intake, Oral 300 Number Voids 3 General appearance: alert, awake, oriented, pleasant, conversational, mental status normal, no respiratory distress Head/Eyes: atraumatic, clear cornea, EOMI, normal conjunctiva/sclera, normocephalic ENT: moist mucosal membranes, normal dentition, normal ear left, normal ear right Neck: full range of motion, non-tender, supple/no meningismus Cardiovascular: normal capillary refill, normal heart sounds, regular rate rhythm Respiratory: aerating well, clear to auscultation, symmetric expansion, no distress Abdomen: non-tender, normal bowel sounds, soft, no distention, no mass/ organomegaly, no rebound Extremities: moves all, no calf tenderness, no edema Musculoskeletal: painless range of motion, no CVA tenderness, no midline vertebral tend, no muscle spasm, no paraspinal tenderness Neuro/TRAFFIC CLERK: alert, oriented X 3, normal speech Skin: dry Psychiatry: normal affect, normal judgment/insight, normal mood Results Findings/Data: Laboratory Tests: 03/10 03/09 03/09 0404 1309 1117 Chemistry Sodium (137 - 145 MMOL/L) 139 140 Potassium (3.5 - 5.1 MMOL/L) 4.1 4.4 Chloride (98 - 107 MMOL/L) 102 103 Carbon Dioxide (22 - 30 MMOL/L) 30 31 H Anion Gap (14 - 24 MMOL/L) 11 L BUN (9 - 20 MG/DL) 15 18 Creatinine (0.66 - 1.25 MG/DL) 1.10 1.00 Glomerular Filtr Rate > 60 > 60 Glucose (74 - 106 MG/DL) 116 H 76 Calcium (8.4 - 10.2 MG/DL) 9.0 9.4 Coagulation INR (0.86 - 1.14) 1.3 H 1.2 H APTT (27.2 - 37.9 SECONDS) 29.2 33.9 PT Patient/Control Mix (10.1 - 12.6 SECONDS) 14.8 H 13.2 H Hematology WBC (3.8 - 9.8 K/MM3) 8.3 RBC (3.95 - 5.67 M/MM3) 4.81 Hgb (12.4 - 16.7 G/DL) 13.4 Hct (35.9 - 49.5 %) 41.8 MCV (81.7 - 96.1 fL) 87 MCH (27.6 - 33.2 pg) 27.9 MCHC (32.9 - 35.5 %) 32.1 L RDW (12.1 - 15.2 %) 13.2 Plt Count (129 - 368 K/MM3) 269 MPV (7.4 - 10.4 fl) 9.6 Neut % (Auto) (43 - 75 %) 81.6 H Lymph % (Auto) (14 - 44 %) 13.4 L Bill[place] % (Auto) (4 - 13 %) 4.6 Eos % (Auto) (0 - 6 %) 0.0 Baso % (Auto) (0 - 2 %) 0 Neut # (Auto) (2.0 - 7.6 K/mm3) 6.78 Lymph # (Auto) (1.0 - 3.8 K/mm3) 1.11 Bill[place] # (Auto) (0.1 - 0.8 K/mm3) 0.38 Eos # (Auto) (0.0 - 0.2 K/mm3) 0.00 Baso # (Auto) (0.0 - 0.2 K/mm3) 0 Immature Gran % (0.0 - 2.0 %) 0.4 Nucleated RBC % (0 - 1.0 %) 0.0 Nucleated RBCs # (Man) (0.0 - 0.1 K/mm3) 0.00 Discharge Instructions PCP PCP follow-up: PCP: Jaspal Valles MD Cardiology Discharge to: Home/Self Care Additional Discharge Routines: PCP Follow-Up, Assistant Store Manager Follow-Up Diet: Cardiac Activity: Resume Normal Activity, As Tolerated Prescriptions: e-prescribe Discharge management: greater than 30 mins Time spent: Time spent on patient care (minutes): 33 Follow-up Appointments PCP follow-up: PCP: Jaspal Valles MD Cardiology PCP follow up timeframe: In 1-2 weeks Consulting provider 1: Provider 1: Javi Souza MD Specialty: Cardiology Consult follow up timeframe: In 1-2 weeks Quality: Discharge Advanced Care Plan 65 or Older Discussed with: patient Discussion included: code status (full code) Current Medications Current medication review: I attest that the foregoing medication list in the medical record is true, accurate, and complete to the best of my knowledge. Attestations Attestation needed: supervising physician Bridget King 03/15/23 0750: Attestations Teaching Physician Attestation F/U visit w/ resident: I saw the patient with the resident and . . . agree with the resident's findings and plan. agree with the resident's findings and plan EXCEPT: at 1107 at 0750 RPT #:[id number] END OF REPORT [facility] 2023-03-10 06:25:00 [facility] ([facility] Cardiology Progress Note REPORT#:[id number] REPORT STATUS: Signed REPORT INITIALIZATION DATE:03/10/23 TIME: 624 PATIENT: MIGUEL DIAZ UNIT #: [id number] ROOM/BED: [address] : 66 AGE: 52 SEX: M ATTEND: Bridget King MD ADM AUTHOR: Javi Souza MD REPT SERVICE DT/TIME: 03/10/23624 * ALL edits or amendments must be made on the electronic/computer document * Subjective Chief complaint: AFL Patient reports: No: chest pain, palpitations, shortness of breath. Objective General VS/I O: 24 hour I O ending at 0700: 03/10 0700 03/09 1900 Intake Total 300 Output Total Balance 300 Intake, Oral 300 Number Voids 3 Vital Signs: Date Time Temp Pulse Resp B/P B/P Pulse O2 O2 Flow FiO2 Mean Ox Delivery Rate 11/08 0609 68 13 97/59 72 97 03/10 0300 62 12 95/58 72 94 03/10 0200 59 113/67 83 96 03/10 0100 66 111/61 79 94 03/10 0042 97.9 03/10 0000 69 12 103/65 78 94 03/09 2300 71 12 102/70 80 94 03/09 2200 75 13 113/76 89 95 03/096 97.7 03/09 2125 77 18 109/51 71 95 03/09 2000 77 17 100 03/09 1900 76 11 129/75 90 96 03/09 1832 76 21 111/66 83 99 03/09 1048 97.7 65 15 114/78 90.1 03/09 07 97.7 67 12 94/63 73.3 95 Room air PATIENT WEIGHT: Weight (lb): 239 Weight (oz): 6.75 Weight (kg): 108.600 Medications: Active Meds + DC'd Last 24 Hrs Naloxone HCl (NARCAN) 0 .STK-MED ONE .ROUTE (DC) Iopamidol (ISOVUE-300) 0 .STK-MED ONE .ROUTE (DC) Sevoflurane (ULTANE) 0 .STK-MED ONE .ROUTE (DC) Ephedrine Sulfate (ePHEDrine sulfate) 0 .STK-MED ONE .ROUTE (DC) Succinylcholine Chloride (Quelicin) 0 .STK-MED ONE .ROUTE (DC) Famotidine (PEPCID) 0 .STK-MED ONE .ROUTE (DC) Fentanyl Citrate (SUBLIMAZE (C-II)) 0 .STK-MED ONE .ROUTE (DC) Midazolam HCl (VERSED (C-IV)) 0 .STK-MED ONE .ROUTE (DC) Propofol (DIPRIVAN) 0 .STK-MED ONE .ROUTE (DC) Atorvastatin Calcium (LIPITOR) 40 MG DAILY PO Enoxaparin Sodium (LOVENOX) 40 MG 0600 SUBQ Sotalol HCl (BETAPACE) 160 MG BID PO Acetaminophen (TYLENOL) 650 MG Q4H PRN PRN PO Al Hydrox/Mg Hydrox/Simethicone (MAALOX PLUS) 30 ML Q4H PRN PRN PO Docusate Sodium (COLACE) 100 MG BID PRN PRN PO Guaifenesin (ROBITUSSIN) 200 MG Q4H PRN PRN PO Ondansetron HCl (ZOFRAN) 4 MG Q8H PRN PRN IV Physical Exam General appearance: alert, awake, oriented Head/Eyes: atraumatic, normocephalic ENT: moist mucosal membranes Neck: no JVD Cardiovascular: CV assessment: regular rate and rhythm Respiratory: clear to auscultation, no distress Lower extremity: LE assessment: no edema Musculoskeletal: full range of motion Neuro/TRAFFIC CLERK: alert, oriented X 3, CN II-XII intact Skin: dry, intact Wound/incision: Location: Bilateral groin Site condition: dressing clean dry Psychiatry: normal affect, normal judgment/insight, normal mood Results Findings/Data: Laboratory Tests 03/10 1117 Chemistry Sodium (137 - 145 MMOL/L) 139 140 Potassium (3.5 - 5.1 MMOL/L) 4.1 4.4 Chloride (98 - 107 MMOL/L) 102 103 Carbon Dioxide (22 - 30 MMOL/L) 30 31 H Anion Gap (14 - 24 MMOL/L) 11 L BUN (9 - 20 MG/DL) 15 18 Creatinine (0.66 - 1.25 MG/DL) 1.10 1.00 Glomerular Filtr Rate > 60 > 60 Glucose (74 - 106 MG/DL) 116 H 76 Calcium (8.4 - 10.2 MG/DL) 9.0 9.4 Laboratory Tests 03/10 1309 Coagulation INR (0.86 - 1.14) 1.3 H 1.2 H APTT (27.2 - 37.9 SECONDS) 29.2 33.9 PT Patient/Control Mix (10.1 - 12.6 SECONDS) 14.8 H 13.2 H Laboratory Tests 03/10 404 Hematology WBC (3.8 - 9.8 K/MM3) 8.3 RBC (3.95 - 5.67 M/MM3) 4.81 Hgb (12.4 - 16.7 G/DL) 13.4 Hct (35.9 - 49.5 %) 41.8 MCV (81.7 - 96.1 fL) 87 MCH (27.6 - 33.2 pg) 27.9 MCHC (32.9 - 35.5 %) 32.1 L RDW (12.1 - 15.2 %) 13.2 Plt Count (129 - 368 K/MM3) 269 MPV (7.4 - 10.4 fl) 9.6 Neut % (Auto) (43 - 75 %) 81.6 H Lymph % (Auto) (14 - 44 %) 13.4 L Billings % (Auto) (4 - 13 %) 4.6 Eos % (Auto) (0 - 6 %) 0.0 Baso % (Auto) (0 - 2 %) 0 Neut # (Auto) (2.0 - 7.6 K/mm3) 6.78 Lymph # (Auto) (1.0 - 3.8 K/mm3) 1.11 Billings # (Auto) (0.1 - 0.8 K/mm3) 0.38 Eos # (Auto) (0.0 - 0.2 K/mm3) 0.00 Baso # (Auto) (0.0 - 0.2 K/mm3) 0 Immature Gran % (0.0 - 2.0 %) 0.4 Nucleated RBC % (0 - 1.0 %) 0.0 Nucleated RBCs # (Man) (0.0 - 0.1 K/mm3) 0.00 Laboratory Tests 03/10 03/09 0404 1309 Coagulation APTT (27.2 - 37.9 SECONDS) 29.2 33.9 EKG Interpretation: Sinus rhythm with nonspecific T abnormality. Diagnosis, Assessment Plan Consultants: cardiology, electrophysiology Free Text DxA P Notes Free Text DxA P Notes: IMPRESSION: 1. Typical atrial flutter. s/p redo RFA PLAN: Change sotalol to metoprolol succinate ER 25mg daily. d/c home f/u one week. at 0637 [facility] #:[id number] END OF REPORT [facility] 2023-03-10 04:59:00 [id number] [address] PATIENT NAME: MIGUEL DIAZ ADMIT DATE: 03/07/23 ACCOUNT NO: [id number] ROOM NO: Z.363 AGE: 52 REPORT TYPE: ELECTROCARDIOGRAM SEX: M ADMITTING PHYSICIAN:Bridget King MD ATTENDING PHYSICIAN:Bridget King MD Order: [id number] Test Reason : AFL Test Date/Time Stamp: WedMar 10 2023 04:59:42 Blood Pressure : / mmHG Vent. Rate : 064 BPM Atrial Rate : 064 BPM P-R Int : 194 ms QRS Dur : 094 ms QT Int : 404 ms P-R-T Axes : 043 036 -39 degrees QTc Int : 416 ms Sinus rhythm with premature atrial complexes Nonspecific T wave abnormality Abnormal ECG When compared with ECG of 09-MAR-2023 18:55, premature atrial complexes are now present Confirmed by JASPAL VALLES ([id number]) on 03/10/2023 5:56:50 PM Referred By: Self Referred Confirmed by:JASPAL VALLES at 175 PATIENT NAME: MIGUEL DIAZ [facility] 2023-03-09 18:55:00 [id number] [place] [address] PATIENT NAME: MIGUEL DIAZ ADMIT DATE: 03/07/23 ACCOUNT NO: [id number] ROOM NO: [facility] AGE: 52 REPORT TYPE: ELECTROCARDIOGRAM SEX: M ADMITTING PHYSICIAN:Bridget King MD ATTENDING PHYSICIAN:Bridget King MD Order: [id number] Test Reason : Aflutter Test Date/Time Stamp: WedMar 09 2023 18:55:21 Blood Pressure : / mmHG Vent. Rate : 075 BPM Atrial Rate : 075 BPM P-R Int : 188 ms QRS Dur : 088 ms QT Int : 370 ms P-R-T Axes : 050 032 -41 degrees QTc Int : 413 ms Normal sinus rhythm T wave abnormality, consider lateral ischemia Abnormal ECG When compared with ECG of 09-MAR-2023 06:30, Sinus rhythm has replaced Atrial flutter T wave inversion now evident in Lateral leads Confirmed by JASPAL VALLES ([id number]) on 03/10/2023 5:56:41 PM Referred By: Self Referred Confirmed by:JASPAL VALLES at [id number] PATIENT NAME: MIGUEL DIAZ [facility] 2023-03-09 17:31:00 [id number] [place] [address] PATIENT NAME: MIGUEL DIAZ ADMIT DATE: 03/07/23 ACCOUNT NO: [id number] ROOM NO: [facility] AGE: 52 REPORT TYPE: CARDIAC CATHETERIZATION REPORT SEX: M ADMITTING PHYSICIAN:Bridget King MD ATTENDING PHYSICIAN:Bridget King MD PROCEDURE DATE: 03/09/2023 PROCEDURES: 1. Comprehensive electrophysiology study with atrial ablation. 2. Intracardiac echocardiography. PREPROCEDURE DIAGNOSIS: Atrial flutter. POSTPROCEDURE DIAGNOSIS: Typical counterclockwise isthmus dependent atrial flutter. HISTORY: This is a 52-year-old male with a history of typical atrial flutter. He underwent an atrial fibrillation ablation approximately 3 years ago. He recently developed palpitations and was found to be in atrial flutter. He was brought to the EP lab for diagnostic electrophysiology study and ablation. DRY PRESS OPERATOR: Javi Souza MD RN MANAGER: None. ANESTHESIA: General endotracheal anesthesia. DESCRIPTION OF PROCEDURE: After informed consent was obtained explaining to the patient risks, benefits and alternatives, the patient was brought to the cardiac catheterization lab in the fasting postabsorptive state. Following induction of general anesthesia, local anesthesia was applied over both femoral veins as well as the left femoral artery. Access to the veins was obtained using modified Seldinger technique with a micropuncture kit and ultrasound guidance. A locking 8-Mauritian sheath and Vizigo sheath were placed in the right femoral vein. A 6-Mauritian sheath and a 23 cm 9-Mauritian sheath were placed in the left femoral veins. Access to the left femoral artery was obtained using modified Seldinger technique with a micropuncture kit and ultrasound guidance. A 6-Mauritian sheath was advanced over the wire into the artery. The sheath was sutured in place with an 0 silk suture. The sheath was aspirated and flushed and connected to a pressure transducer for arterial blood pressure monitoring. A 5-Mauritian Cournand catheter was advanced via the 6-Mauritian sheath in the left femoral vein and placed in the right ventricle. An intracardiac echocardiography catheter was advanced via the 9-Mauritian sheath and placed in the right atrium. Intracardiac echocardiography was performed to visualize the cavotricuspid isthmus. A decapolar deflectable catheter was advanced via the locking 8-Mauritian sheath and placed in the coronary sinus. Left atrial recordings were made. A PentaRay catheter was advanced via the Vizigo sheath into the right atrium. A PATIENT NAME: MIGUEL DIAZ 3-dimensional interatrial map was created via the PentaRay. It appeared to show a counterclockwise isthmus dependent flutter. There appeared to be a small gap in the prior isthmus ablation line. The PentaRay was exchanged for an STSF ablation catheter, which was advanced via the Vizigo sheath. The ablation catheter was placed on the interatrial septum and an area of gap along the prior ablation line. Entrainment was performed. Post-pacing interval minus the tachycardia cycle length was within 20 milliseconds. Multiple RF applications were then made across the cavotricuspid isthmus. Termination of the atrial flutter recurred after the initial 5 seconds of ablation. Further ablation was made along the prior ablation line. Bidirectional block was verified with differential pacing. At the end of the procedure, all catheters were removed. The sheaths were aspirated and flushed. A left femoral arteriogram was obtained via the 6-Mauritian sheath in the artery. After confirmation of adequate placement of the sheath, a 6-Mauritian Angio-Seal device was deployed without complication. The remaining venous sheaths were aspirated, removed, and hemostasis achieved with local pressure. The patient tolerated the procedure well with no complications. CONCLUSION: 1. Baseline rhythm typical counterclockwise isthmus dependent atrial flutter. 2. Successful atrial flutter ablation. 3. Estimated blood loss 15 mL. 4. No complications. Dictated By: Javi Souza MD Date Dictated: 03/09/2023 17:31:10 Date Transcribed: 03/09/2023 18:51:34 GSP/AFS Receipt ID: [id number] CC: Jaspal Valles MD (F) Authenticated by Javi Souza MD On 03/10/2023 08:31:09 AM at 0831 PATIENT NAME: MIGUEL DIAZ [facility] 2023-03-09 14:45:00 [facility] ([facility]) Hospitalist Progress Note REPORT#:[id number] REPORT STATUS: Signed REPORT INITIALIZATION DATE:03/09/23 TIME: 1444 PATIENT: MIGUEL DIAZ UNIT #: [id number] [facility] AGE: 52 SEX: M ATTEND: Bridget King MD ADM AUTHOR: Keyon Boyd DO R3 REPT SERVICE DT/TIME: 03/09/231444 * ALL edits or amendments must be made on the electronic/computer document * Keyon Boyd 03/09/235: Subjective Chief complaint: chest discomfort HPI: Pt is doing well. He is scheduled for a ablation with Dr. Souza later today. Has not eaten since dinner yesterday. Denies chest pain, palpitations, or dyspnea. Review of Systems Constitutional: Denies: chills, fatigue, fever, generalized weakness. Skin: Denies: itching. Allergy/Immun: Denies: rhinorrhea, sneezing. Eyes: Denies: visual loss/blurred. ENT: Denies: nasal congestion, sore throat. Respiratory: Denies: MORENO (dyspnea on exertion), non productive cough, productive cough ( sputum), SOB, wheezing. Cardiovascular: Denies: chest pain, MORENO (dyspnea on exertion), palpitations. GI: Denies: abdominal pain, constipation, diarrhea, nausea, vomiting. : Denies: dysuria, flank pain, frequency. Musculoskeletal: Denies: extremity pain, extremity swelling, lumbar pain, neck pain, thoracic pain. Neuro: Denies: dizziness, headache, lightheaded. All systems rev neg: except as noted Objective General VS/I O: Vital Signs: Date Time Temp Pulse Resp B/P B/P Pulse O2 O2 Flow FiO2 Mean Ox Delivery Rate 03/09 1048 97.7 65 15 114/78 90.1 03/09 727 97.7 67 12 94/63 73.3 95 Room air 03/09 0615 96 Room air 03/09 0408 98.1 72 19 120/74 89.5 99 Room air 03/09 0029 97.5 73 19 107/67 80.7 97 Room air 03/08 1804 97.7 67 18 118/82 94.1 97 Room air 24 hour I O ending at 0700: 03/09 0700 03/08 1900 Intake Total 500 500 Output Total Balance 500 500 Intake, Oral 500 500 Number 1 Bowel Movements Number Voids 1 2 Patient 108.6 kg Weight Weight Bed scale Measurement Method PATIENT WEIGHT: Weight (lb): 239 Weight (oz): 6.75 Weight (kg): 108.600 Medications: Active Meds + DC'd Last 24 Hrs Sevoflurane (ULTANE) 0 .STK-MED ONE .ROUTE (DC) Ephedrine Sulfate (ePHEDrine sulfate) 0 .STK-MED ONE .ROUTE (DC) Succinylcholine Chloride (Quelicin) 0 .STK-MED ONE .ROUTE (DC) Famotidine (PEPCID) 0 .STK-MED ONE .ROUTE (DC) Fentanyl Citrate (SUBLIMAZE (C-II)) 0 .STK-MED ONE .ROUTE (DC) Midazolam HCl (VERSED (C-IV)) 0 .STK-MED ONE .ROUTE (DC) Propofol (DIPRIVAN) 0 .STK-MED ONE .ROUTE (DC) Atorvastatin Calcium (LIPITOR) 40 MG DAILY PO Enoxaparin Sodium (LOVENOX) 40 MG 0600 SUBQ Sotalol HCl (BETAPACE) 160 MG BID PO Acetaminophen (TYLENOL) 650 MG Q4H PRN PRN PO Al Hydrox/Mg Hydrox/Simethicone (MAALOX PLUS) 30 ML Q4H PRN PRN PO Docusate Sodium (COLACE) 100 MG BID PRN PRN PO Guaifenesin (ROBITUSSIN) 200 MG Q4H PRN PRN PO Ondansetron HCl (ZOFRAN) 4 MG Q8H PRN PRN IV Physical Exam General appearance: alert, awake, oriented, pleasant, conversational, mental status normal, no respiratory distress Head/Eyes: atraumatic, clear cornea, EOMI, normal conjunctiva/sclera, normocephalic ENT: moist mucosal membranes, normal dentition, normal ear left, normal ear right Neck: full range of motion, non-tender Cardiovascular: irregular rhythm, normal capillary refill, normal heart sounds Respiratory: aerating well, clear to auscultation, symmetric expansion, no distress Abdomen: non-tender, normal bowel sounds, soft, no distention, no mass/ organomegaly, no rebound Extremities: moves all, no calf tenderness, no edema Musculoskeletal: painless range of motion, no CVA tenderness, no midline vertebral tend, no muscle spasm, no paraspinal tenderness Neuro/TRAFFIC CLERK: alert, oriented X 3, normal speech Skin: dry, intact Psychiatry: normal affect, normal judgment/insight, normal mood Results Findings/Data: Laboratory Tests 03/09 1117 Chemistry Sodium (137 - 145 MMOL/L) 140 Potassium (3.5 - 5.1 MMOL/L) 4.4 Chloride (98 - 107 MMOL/L) 103 Carbon Dioxide (22 - 30 MMOL/L) 31 H BUN (9 - 20 MG/DL) 18 Creatinine (0.66 - 1.25 MG/DL) 1.00 Glomerular Filtr Rate > 60 Glucose (74 - 106 MG/DL) 76 Calcium (8.4 - 10.2 MG/DL) 9.4 Laboratory Tests 03/09 1309 Coagulation INR (0.86 - 1.14) 1.2 H APTT (27.2 - 37.9 SECONDS) 33.9 PT Patient/Control Mix (10.1 - 12.6 SECONDS) 13.2 H Diagnosis, Assessment Plan Problem List/A P: 1. Atrial flutter 2. Chest pain 3. HLD (hyperlipidemia) Consultants: cardiology, electrophysiology Free Text DxA P Notes Free text DxA P notes: Mr. Diaz is a pleasant 52 year old male who presents with episodic chest pain and a history of atrial flutter s/p ablation x1 with Dr. Souza approx 2 years ago #Atrial flutter #Chest pain Patient with intermittent chest pain, associated SOB and palpitations. Lasix 40mg IV given by ER, no evidence of volume overload on my exam so holding further diuretics - Dr. Souza to take patient to general production laborer for ablation today - Telemetry monitoring, troponins negative - Continue home sotalol 160mg po BID, home ASA 325mg daily - Echocardiogram pending #Abnormal CXR, likely due to atelectasis Findings show possible developing pneumonia but no fever, no leukocytosis, no cough - Continue to monitor VS/WBC, will consider antibiotics if needed/worsening of clinical symptoms. #HLD - Continue Atorvastatin 40 mg po daily DVT prophylaxis: Lovenox Diet: Cardiac NOK: - Wilfrid Diaz ([phone]) Disposition: DC Home pending clinical improvement [facility] Prophylaxis VTE prophylaxis initiated: yes (Lovenox) Current Medications Current medication review: I attest that the foregoing medication list in the medical record is true, accurate, and complete to the best of my knowledge. Attestations Attestation needed: supervising physician Bridget King 03/09/23 2149: Attestations Teaching Physician Attestation F/U visit w/ resident: I saw the patient with the resident and . . . agree with the resident's findings and plan. agree with the resident's findings and plan EXCEPT: at 1653 at 0750 RPT #:[id number] END OF REPORT [facility] 2023-03-09 08:05:[address] [facility] Cardiology Progress Note REPORT#:[id number] REPORT STATUS: Signed REPORT INITIALIZATION DATE:03/09/23 TIME: 804 PATIENT: MIGUEL DIAZ UNIT #: [id number] ROOM/BED: [address] : 68 AGE: 52 SEX: M ATTEND: Bridget King MD ADM AUTHOR: Javi Souza MD REPT SERVICE DT/TIME: 03/09/23 0805 * ALL edits or amendments must be made on the electronic/computer document * Subjective Chief complaint: AFL Patient reports: No: chest pain, palpitations, shortness of breath. Objective General VS/I O: 24 hour I O ending at 0700: 03/09 0700 03/08 1900 Intake Total 500 500 Output Total Balance 500 500 Intake, Oral 500 500 Number 1 Bowel Movements Number Voids 1 2 Patient 108.6 kg Weight Weight Bed scale Measurement Method Vital Signs: Date Time Temp Pulse Resp B/P B/P Pulse O2 O2 Flow FiO2 Mean Ox Delivery Rate 03/09 727 97.7 67 12 94/63 73.3 95 Room air 03/09 0615 96 Room air 03/09 0408 98.1 72 19 120/74 89.5 99 Room air 03/09 0029 97.5 73 19 107/67 80.7 97 Room air 03/08 1804 97.7 67 18 118/82 94.1 97 Room air 03/08 1612 97.7 72 122/79 93.0 96 03/08 1057 97.9 80 16 105/70 81.5 98 03/08 0810 97.7 70 14 115/77 89.7 96 PATIENT WEIGHT: Weight (lb): 239 Weight (oz): 6.75 Weight (kg): 108.600 Medications: Active Meds + DC'd Last 24 Hrs Atorvastatin Calcium (LIPITOR) 40 MG DAILY PO Enoxaparin Sodium (LOVENOX) 40 MG 0600 SUBQ Sotalol HCl (BETAPACE) 160 MG BID PO Acetaminophen (TYLENOL) 650 MG Q4H PRN PRN PO Al Hydrox/Mg Hydrox/Simethicone (MAALOX PLUS) 30 ML Q4H PRN PRN PO Docusate Sodium (COLACE) 100 MG BID PRN PRN PO Guaifenesin (ROBITUSSIN) 200 MG Q4H PRN PRN PO Ondansetron HCl (ZOFRAN) 4 MG Q8H PRN PRN IV Physical Exam General appearance: alert, awake, oriented Head/Eyes: atraumatic, normocephalic ENT: moist mucosal membranes Neck: no JVD Cardiovascular: CV assessment: regular rate and rhythm Respiratory: clear to auscultation, no distress Lower extremity: LE assessment: no edema Musculoskeletal: full range of motion Neuro/TRAFFIC CLERK: alert, oriented X 3, CN II-XII intact Skin: dry, intact Psychiatry: normal affect, normal judgment/insight, normal mood Results Findings/Data: Laboratory Tests 03/08 1004 Chemistry Sodium (137 - 145 MMOL/L) 140 Potassium (3.5 - 5.1 MMOL/L) 4.0 Chloride (98 - 107 MMOL/L) 101 Carbon Dioxide (22 - 30 MMOL/L) 29 BUN (9 - 20 MG/DL) 16 Creatinine (0.66 - 1.25 MG/DL) 1.00 Glomerular Filtr Rate > 60 Glucose (74 - 106 MG/DL) 85 Calcium (8.4 - 10.2 MG/DL) 9.6 Magnesium (1.6 - 2.3 MG/DL) 1.9 Laboratory Tests 03/08 1004 Chemistry Magnesium (1.6 - 2.3 MG/DL) 1.9 Telemetry Interpretation: AFL Diagnosis, Assessment Plan Consultants: cardiology, electrophysiology Free Text DxA P Notes Free Text DxA P Notes: IMPRESSION: 1. Atrial flutter. Status post ablation on 09/10/2020. Appears to be recurrent typical atrial flutter now. 2. Chest pain. 3. Hyperlipidemia. PLAN: EP Study/ablation. at 0637 RPT #:[id number] END OF REPORT [facility] 2023-03-09 06:30:00 [id number] [place] [id number] PATIENT NAME: MIGUEL DIAZ ADMIT DATE: 03/07/23 ACCOUNT NO: [id number] [facility]GE[facility] 52 REPORT TYPE: ELECTROCARDIOGRAM SEX: M ADMITTING PHYSICIAN:Bridget King MD ATTENDING PHYSICIAN:Bridget King MD Order: [id number] Test Reason : CP/AFL Test Date/Time Stamp: WedMar 09 2023 06:30:16 Blood Pressure : / mmHG Vent. Rate : 068 BPM Atrial Rate : 214 BPM P-R Int : 000 ms QRS Dur : 096 ms QT Int : 394 ms P-R-T Axes : 000 028 002 degrees QTc Int : 418 ms Atrial flutter with variable AV block Nonspecific T wave abnormality Abnormal ECG When compared with ECG of 08-MAR-2023 08:33, No significant change was found Confirmed by JASPAL VALLES ([id number]) on 03/09/2023 6:04:59 PM Referred By: Self Referred Confirmed by:JASPAL VALLES at 1809 PATIENT NAME: MIGUEL DIAZ [facility] 2023-03-08 09:35:00 [facility] ([facility]) Hospitalist Progress Note REPORT#:[id number] REPORT STATUS: Signed REPORT INITIALIZATION DATE:03/08/23 TIME: 934 PATIENT: MIGUEL DIAZ UNIT #: [id number] ROOM/BED: [facility] : 68 AGE: 52 SEX: M ATTEND: Bridget King MD ADM AUTHOR: Faisal Martinez MD R1 REPT SERVICE DT/TIME: 03/08/23934 * ALL edits or amendments must be made on the electronic/computer document * Faisal Martinez 03/08/23 0935: Subjective Chief complaint: chest discomfort HPI: The patient was seen and examined at bedside this AM. He denies any chest pain, palpitations, or SOB. He presented for evaluation of intermittent pain and possible ablation with Dr. Souza who wants echocardiogram performed prior to ablation. Will restart him on cardiac diet and plan for ablation following echocardiogram. He has some lower extremity swelling noted, otherwise feels fine and wants to go home. He was resumed on his home sotalol and ASA. He denies fever or chills and has had no cough. Review of Systems Free Text ROS Notes Free Text ROS Notes: Constitutional: Denies: chills, fatigue, fever, generalized weakness. Skin: Denies: abrasion, bruising, contusion, diaphoresis. Allergy/Immun: Denies: allergic reaction, anaphylaxis, hives, itching. Eyes: Denies: redness, discharge, visual loss/blurred, itching. ENT: Denies: ear drainage, ear ringing, earache, hearing loss. Respiratory: Reports: MORENO (dyspnea on exertion), SOB. Denies: non productive cough, wheezing. Cardiovascular: Reports: edema. Denies: chest pain, orthopnea, palpitations. GI: Denies: abdominal pain, anorexia, constipation, diarrhea. : Denies: dysuria, flank pain, frequency, hematuria. Musculoskeletal: Denies: arthritis, extremity pain, extremity swelling. Heme: Denies: adenopathy, bleeding, bruising. Endocrine: Denies: cold intolerance, heat intolerance, polydipsia, polyphagia. Neuro: Denies: bladder dysfunction, bowel dysfunction, change in LOC, confusion. Psych: Denies: agitation, anxiety, auditory hallucination, change in mental status. All systems rev neg: except as noted Objective General VS/I O: Vital Signs: Date Time Temp Pulse Resp B/P B/P Pulse O2 O2 Flow FiO2 Mean Ox Delivery Rate 03/08 0810 97.7 70 14 115/77 89.7 96 03/08 0358 98.2 66 16 124/85 97.8 98 Room air 03/07 2329 98.1 81 16 123/88 99.9 97 Nasal cannula 03/07 2002 97.9 70 16 148/100 115.9 98 Room air 03/07 1950 97.7 68 17 121/88 99 96 Room air 03/07 1331 95 03/07 1249 97.8 72 16 114/71 85 97 Room air 24 hour I O ending at 0700: 03/08 0700 03/07 1900 Intake Total 450 Output Total Balance 450 Intake, Oral 450 Number Voids 3 Patient 111.364 kg Weight Weight Stated/Reported Measurement Method PATIENT WEIGHT: Weight (lb): 229 Weight (oz): 4.49 Weight (kg): 104.000 Physical Exam Head/Eyes: atraumatic, clear cornea, EOMI ENT: moist mucosal membranes, normal dentition, normal ear left, normal ear right Neck: full range of motion, non-tender Cardiovascular: irregular rhythm, normal capillary refill, normal heart sounds Respiratory: aerating well, clear to auscultation, symmetric expansion Abdomen: non-tender, normal bowel sounds, soft Extremities: moves all Musculoskeletal: normal inspection, painless range of motion Neuro/TRAFFIC CLERK: alert, oriented X 3, CNII-XII intact Skin: dry, intact Psychiatry: normal affect, normal judgment/insight, normal mood Diagnosis, Assessment Plan Consultants: cardiology, electrophysiology Free Text DxA P Notes Free text DxA P notes: Mr. Diaz is a pleasant 52 year old male who presents with episodic chest pain and a history of atrial flutter s/p ablation x1 with Dr. Souza approx 2 years ago #Atrial flutter #Chest pain Patient with intermittent chest pain, associated SOB and palpitations. Lasix 40mg IV given by ER, no evidence of volume overload on my exam so holding further diuretics - Consult Dr. Souza for recs, possible ablation - Telemetry monitoring, troponins negative - Continue home sotalol 160mg po BID, home ASA 325mg daily - Echocardiogram pending prior to ablation, scheduled for tomorrow 03/09 #Abnormal CXR, likely due to atelectasis Findings show possible developing pneumonia but no fever, no leukocytosis, no cough - Continue to monitor VS/WBC, will consider antibiotics if needed/worsening of clinical symptoms. #HLD - Continue Atorvastatin 40 mg po daily DVT prophylaxis: Lovenox Diet: Cardiac NOK: - Wilfrid Diaz ([phone]) Disposition: DC Home pending clinical improvement Attestations Attestation needed: teaching physician Bridget King 03/08/23 1756: Quality: [facility] Crit Care VTE Prophylaxis VTE prophylaxis initiated: yes Current Medications Current medication review: I attest that the foregoing medication list in the medical record is true, accurate, and complete to the best of my knowledge. Attestations Teaching Physician Attestation F/U visit w/ resident: I saw the patient with the resident and . . . agree with the resident's findings and plan. agree with the resident's findings and plan EXCEPT: at 1444 at 0748 RPT #:[id number] END OF REPORT [facility] 2023-03-08 08:50:00 [id number] [address] PATIENT NAME: MIGUEL DIAZ ADMIT DATE: 03/07/23 ACCOUNT NO: [id number] ROOM NO: [facility] AGE: 52 REPORT TYPE: CONSULTATION REPORT SEX: M ADMITTING PHYSICIAN:Bridget King MD ATTENDING PHYSICIAN:Bridget King MD CONSULTATION DATE: 03/08/2023 REFERRING PHYSICIAN: Dr. Ugarte. REASON FOR CONSULTATION: I was asked to evaluate this patient for atrial flutter. HISTORY OF PRESENT ILLNESS: This is a 52-year-old male with a history of typical counterclockwise atrial flutter, who underwent atrial flutter ablation on 09/10/2020. He presented to an outside Emergency room with complaints of a 1 week history of intermittent chest pain and palpitations. Also, complains of retrosternal chest pressure, which has been up to 8 to 9 out of 10. It resolves with rest. There has been some associated shortness of breath. Currently, he is feeling better with no chest pain or shortness of breath. PAST MEDICAL HISTORY: 1. Typical counterclockwise atrial flutter -- status post ablation on 09/10/2020. 2. Hyperlipidemia. FAMILY HISTORY: The patient is adopted. Family history unknown. SOCIAL HISTORY: Occasional alcohol. No tobacco. HOME MEDICATIONS: Atorvastatin 40 mg daily, sotalol 160 mg twice daily. ALLERGIES: NKDA. REVIEW OF SYSTEMS: CONSTITUTIONAL: No complaints of fever or chills. ENMT: No complaints of headache. EYES: No complaints of blurred vision. RESPIRATORY: Some shortness of breath. CARDIOVASCULAR: Chest pain with palpitations as noted. GASTROINTESTINAL: No complaints of nausea or vomiting. GENITOURINARY: No complaints urinary frequency or dysuria. MUSCULOSKELETAL: No complaints of joint pain. SKIN: No complaints of skin rash. NEUROLOGIC: No complaints of focal weakness. PHYSICAL EXAMINATION: GENERAL: Well-nourished male, in no acute distress. PATIENT NAME: MIGUEL DIAZ VITAL SIGNS: Temperature 97.7, blood pressure 115/77, pulse 70, respiratory rate 14, O2 sats 96%. ENMT: Atraumatic, normocephalic. RESPIRATORY: Normal effort. Clear to auscultation bilaterally. CARDIOVASCULAR: Normal S1 and S2. No S3 or S4. NECK: JVP is normal. No carotid bruits. EXTREMITIES: No edema. NEUROLOGIC: Cranial nerves II-XII are intact. No focal motor deficits noted. DIAGNOSTIC DATA: Electrocardiogram shows atrial flutter with 4:1 AV block. Heart rate 70. LABORATORY DATA: White blood cell count 5.1, hemoglobin 14.4, platelets 240. Sodium 140, potassium 4.2, chloride 104, CO2 29, BUN 10, creatinine 1, glucose 83, magnesium 1.9. Troponin I less than 0.012. LDL 152. INR 1.1. Chest x-ray; left basilar airspace opacities. Subsegmental atelectasis versus developing pneumonia. IMPRESSION: 1. Atrial flutter. Status post ablation on 09/10/2020. Appears to be recurrent typical atrial flutter now. 2. Chest pain. 3. Hyperlipidemia. PLAN: 1. 2D echo. 2. We will plan EP study and ablation after echo. Dictated By: aJvi Souza MD Date Dictated: 03/08/2023 08:50:57 Date Transcribed: 03/08/2023 11:19:35 GSP/AFS Receipt ID: [id number] Authenticated and Edited by Javi Souza MD On 03/10/23 8:30:45 AM at 0832 PATIENT NAME: MIGUEL DIAZ [facility] 2023-03-08 08:33:00 [id number] [place] [address] PATIENT NAME: MIUGEL DIAZ ADMIT DATE: 03/07/23 ACCOUNT NO: [id number] [facility] AGE: 52 REPORT TYPE: ELECTROCARDIOGRAM SEX: M ADMITTING PHYSICIAN:Bridget King MD ATTENDING PHYSICIAN:Bridget King MD Order: [id number] Test Reason : CP/AFL Test Date/Time Stamp: WedMar 08 2023 08:33:35 Blood Pressure : / mmHG Vent. Rate : 070 BPM Atrial Rate : 208 BPM P-R Int : 000 ms QRS Dur : 092 ms QT Int : 412 ms P-R-T Axes : 265 046 015 degrees QTc Int : 444 ms Atrial flutter with variable AV block Nonspecific T wave abnormality Abnormal ECG When compared with ECG of 10-SEP-2020 04:45, Atrial flutter has replaced Sinus rhythm Nonspecific T wave abnormality now evident in Anterior leads Confirmed by JASPAL VALLES ([id number]) on 03/08/2023 1:41:50 PM Referred By: Self Referred Confirmed by:JASPAL VALLES at [id number] PATIENT NAME: MIGUEL DIAZ [facility] 2023-03-07 18:21:00 [facility] ([facility]) Hospitalist History Physical REPORT#:[id number] REPORT STATUS: Signed REPORT INITIALIZATION DATE:03/07/23 TIME: 1820 PATIENT: MIGUEL DIAZ UNIT #: [id number] ROOM/BED: [place] [id number] : 68 AGE: 52 SEX: M ATTEND: Rojas Ugarte MD ADM AUTHOR: Rojas Ugarte MD REPT SERVICE DT/TIME: 03/07/231820 * ALL edits or amendments must be made on the electronic/computer document * History of Present Illness HPI Chief complaint: chest discomfort PCP: PCP: Jaspal Valles MD Cardiology HPI: Mr. Diaz is a 52 year old male wiht known PMH of A flutter and possible HLD who presents to the hospital with intermittent pain which has been happening for the last week. He has had symptoms of this before when he had episodes of atrial flutter. He had an ablation with Dr. Souza approx. 2 years ago for the same. He follows with Dr. Valles for his atrial flutter and is on sotalol. Over the last several months he tells me he has been having them and more frequently especially this last week. He describes the episodes as retrosternal pressure like chest pain which can be as bad as 8 or 9 out of 10 and some times is relieved by stopping to rest. He also has some associated shortness of breath but also occasionally has shortness of breath without the chest pain. He denies any nausea or diaphoresis with it and no radiation. He denies fever or chills and has had no cough. He does not have orthopnea. He does however occasionally swell in his legs (R>L) and lower back, and some times his hands. He came to the ER now on the direction of Dr. Valles who recommended plan for a repeat ablation with Dr. Souza. Hx Obtained From Patient History Past Medical Surgical Hx Patient History: 1. Chest pain 2. Atrial flutter Additional medical history: possible HLD, he denies it but is on atorvastatin Additional surgical history: none Family History Family history: Reports: (adopted, unknown FH). Social History Alcohol use: occasional social drinker Drug use: Denies recreational drugs Smoking status for patients 13 years old or older: Never Smoker Medication/Allergy-Vaccine Hx Medications: Home Medications: ATORVASTATIN (LIPITOR) 40 MG PO DAILY SOTALOL (BETAPACE) 160 MG PO BID ATORVASTATIN (LIPITOR) 40 MG PO DAILY ASA 325 mg po daily Allergies: Coded Allergies: No Known Allergies (07/26/20) Review of Systems Constitutional: Denies: chills, fatigue, fever, generalized weakness. Skin: Denies: abrasion, bruising, contusion, diaphoresis. Allergy/Immun: Denies: allergic reaction, anaphylaxis, hives, itching. Eyes: Denies: redness, discharge, visual loss/blurred, itching. ENT: Denies: ear drainage, ear ringing, earache, hearing loss. Respiratory: Reports: MORENO (dyspnea on exertion), SOB. Denies: non productive cough, wheezing. Cardiovascular: Reports: chest pain, edema. Denies: orthopnea, palpitations. GI: Denies: abdominal pain, anorexia, constipation, diarrhea. : Denies: dysuria, flank pain, frequency, hematuria. Musculoskeletal: Denies: arthritis, extremity pain, extremity swelling. Heme: Denies: adenopathy, bleeding, bruising. Endocrine: Denies: cold intolerance, heat intolerance, polydipsia, polyphagia. Neuro: Denies: bladder dysfunction, bowel dysfunction, change in LOC, confusion. Psych: Denies: agitation, anxiety, auditory hallucination, change in mental status. All systems rev neg: except as noted OBJECTIVE VS/I O: Vital Signs Date Temp Pulse Resp B/P B/P Mean Pulse Ox FiO2 03/07 36.6 72 16 114/71 85 95-97 Last Documented: Result Date Time Pulse Ox 95 03/07 1331 B/P 114/71 03/07 1249 B/P Mean 85 03/07 1249 O2 Delivery Room air 03/07 1249 Temp 36.6 03/07 1249 Pulse 72 03/07 1249 Resp 16 03/07 1249 Patient Weight and BMI Weight (kg): 111.364 BMI: 35.2 Medications: Active Meds + DC'd Last 24 Hrs Enoxaparin Sodium (LOVENOX) 40 MG 0600 SUBQ (UNV) Acetaminophen (TYLENOL) 650 MG Q4H PRN PRN PO (UNV) Al Hydrox/Mg Hydrox/Simethicone (MAALOX PLUS) 30 ML Q4H PRN PRN PO (UNV) Docusate Sodium (COLACE) 100 MG BID PRN PRN PO (UNV) Guaifenesin (ROBITUSSIN) 200 MG Q4H PRN PRN PO (UNV) Labetalol HCl (TRANDATE, NORMODYNE) 20 MG Q4H PRN PRN IV (UNV) Ondansetron HCl (ZOFRAN) 4 MG Q8H PRN PRN IV (UNV) Furosemide (LASIX) 40 MG X1ED STA IV (DC) Aspirin (CHILDREN'S ASPIRIN) 324 MG X1ED STA PO (DC) General appearance: alert, awake, oriented Head/Eyes: atraumatic, clear cornea, EOMI ENT: moist mucosal membranes, normal dentition, normal ear left, normal ear right Neck: full range of motion, non-tender Cardiovascular: irregular rhythm, normal capillary refill, normal heart sounds Respiratory: aerating well, clear to auscultation, symmetric expansion Abdomen: non-tender, normal bowel sounds, soft Extremities: moves all Musculoskeletal: normal inspection, painless range of motion Neuro/TRAFFIC CLERK: alert, oriented X 3, CNII-XII intact Skin: dry, intact Psychiatry: normal affect, normal judgment/insight, normal mood Results Findings/Data: Laboratory Tests: 03/07 1502 Chemistry Sodium (137 - 145 MMOL/L) 140 Potassium (3.5 - 5.1 MMOL/L) 4.2 Chloride (98 - 107 MMOL/L) 104 Carbon Dioxide (22 - 30 MMOL/L) 29 Anion Gap (14 - 24 MMOL/L) 11 L BUN (9 - 20 MG/DL) 10 Creatinine (0.66 - 1.25 MG/DL) 1.00 Glomerular Filtr Rate > 60 Glucose (74 - 106 MG/DL) 83 Calcium (8.4 - 10.2 MG/DL) 9.3 Troponin I (0.012 - 0.033 NG/ML) < 0.012 L NT-Pro-B Natriuret Pep (pg/mL) 1150.0 Coagulation INR (0.86 - 1.14) 1.1 APTT (27.2 - 37.9 SECONDS) 31.8 PT Patient/Control Mix (10.1 - 12.6 SECONDS) 12.2 D-Dimer (0 - 499 ng/mLFEU) 240 Hematology WBC (3.8 - 9.8 K/MM3) 5.1 RBC (3.95 - 5.67 M/MM3) 4.80 Hgb (12.4 - 16.7 G/DL) 13.6 Hct (35.9 - 49.5 %) 41.5 MCV (81.7 - 96.1 fL) 87 MCH (27.6 - 33.2 pg) 28.3 MCHC (32.9 - 35.5 %) 32.8 L RDW (12.1 - 15.2 %) 13.3 Plt Count (129 - 368 K/MM3) 273 Neut # (Auto) (2.0 - 7.6 K/mm3) 2.33 Lymph # (Auto) (1.0 - 3.8 K/mm3) 2.03 Billings # (Auto) (0.1 - 0.8 K/mm3) 0.66 Eos # (Auto) (0.0 - 0.2 K/mm3) 0.07 Baso # (Auto) (0.0 - 0.2 K/mm3) 0.01 Nucleated RBCs # (Man) (0.0 - 0.1 K/mm3) 0.00 Laboratory Tests 03/07/23 1502: [Embedded Image Not Available] Radiology data: Recent Impressions: RADIOLOGY - XR CHEST 1V 03/07 1305 Report Impression - Status: SIGNED Entered: 03/07/2023 1327 IMPRESSION: Left basilar airspace opacities which could reflect subsegmental atelectasis versus developing pneumonia. Impression By: [email or web address] - Amy Stein MD Diagnosis, Assessment Plan Free Text A P: Mr. Diaz is a pleasant 52 year old male who presents with episodic chest pain and a history of atrial flutter s/p ablation x1 with Dr. Souza approx 2 years ago Atrial flutter : chest pain : intermittent swelling : elevated proBNP - Consult Dr. Souza for recs, possible ablation - Telemetry monitoring, troponins x3 pending (negative x1), EKG in the AM - Lasix 40mg IV given by ER, no evidence of volume overload on my exam so holding further diuretics - continue home sotalol 160mg po BID, home ASA 325mg daily - check echocardiogram Abnormal CXR, likely due to atelectasis - mention possible developing pneumonia but no fever, no leukocytosis, no cough - Hold abx for now Possible HLD - cont atorvastatin 40 mg po daily DVT PPX - lovenox 40 subcut daily Consultants: cardiology, electrophysiology at 1838 RPT #:[id number] END OF REPORT [facility] 2023-03-07 13:16:00 [facility] ([facility]) EMERGENCY PROVIDER REPORT REPORT#:[id number] REPORT STATUS: Signed DATE:03/07/23 TIME: 1316 PATIENT: MIGUEL DIAZ UNIT #: [id number] ROOM/BED: AGE: 52 SEX: M PCP PHYS: Jaspal Valles MD Cardiology SERVICE AUTHOR: Ramírez Ansari MD LOCATION: [facility] * ALL edits or amendments must be made on the electronic/computer document * HPI-General Illness Free Text HPI Notes Free Text HPI Notes 52M hx atrial flutter on metoprolol status post ablation, prior stress test and cath three years ago patient reports no occlusions, sees intelligence clerk Dr Souza, presents with chest pain acute on chronic, more constant over the past week. Routinely gets chest pain once a week but has become more persistent, also feels short of breath. Denies history of VTE or malignancy, recent immobilization or trauma or surgery, calf pain or swelling, hormone therapy or hemoptysis. Negative family and social history. General Initial Greet Date/Time 03/07/23 1248 Provider in Triage HPI Chief Complaint Chest pain Presentation Chief Complaint Chest pain Review of Systems ROS Statements All systems rev neg except as marked. (as per hpi ) Past Medical History - Adult Stated Complaint CHEST PAIN; LEFT ELBOW PAIN HAND NUMBNESS Allergies Coded Allergies: No Known Allergies (07/26/20) Home Medications Active Scripts ATORVASTATIN (LIPITOR) 40 MG PO DAILY 90 Days #90 TABS Ref 3 Prov: 07/27/20 Reported Medications ATORVASTATIN (LIPITOR) 40 MG PO DAILY SOTALOL (BETAPACE) 160 MG PO BID Calculated Suicide Risk (nurs) No risk Smoking status for patients 13 years old or older: Never Smoker Physical Exam Vital Signs Vital Signs First Documented: Result Date Time Pulse Ox 97 03/07 1249 B/P 114/71 03/07 1249 B/P Mean 85 03/07 1249 O2 Delivery Room air 03/07 1249 Temp 36.6 03/07 1249 Pulse 72 03/07 124 Resp 16 03/07 1249 Last Documented: Result Date Time Pulse Ox 95 03/07 1331 B/P 114/71 03/07 1249 B/P Mean 85 03/07 1249 O2 Delivery Room air 03/07 1249 Temp 36.6 03/07 1249 Pulse 72 03/07 1249 Resp 16 03/07 1249 Review of Vital Signs Reviewed Basic Physical Exam Basic PE HEAD: Atraumatic/NC, NECK: Supple, RESP: No resp distress, EXT: No gross abnormality, SKIN: No rashes, warm/dry, NEURO: gross movement NL, PSYCH: NL thought content Physical Exam Cardiovascular Text/Dict Notes Irregular, normal rate, no murmur Interpretation Diagnostics Lab Results Interpretation Results Laboratory Tests 03/07/23 1502: [Embedded Image Not Available] Laboratory Tests: 03/07 150 Chemistry Sodium (137 - 145 MMOL/L) 140 Potassium (3.5 - 5.1 MMOL/L) 4.2 Chloride (98 - 107 MMOL/L) 104 Carbon Dioxide (22 - 30 MMOL/L) 29 Anion Gap (14 - 24 MMOL/L) 11 L BUN (9 - 20 MG/DL) 10 Creatinine (0.66 - 1.25 MG/DL) 1.00 Glomerular Filtr Rate > 60 Glucose (74 - 106 MG/DL) 83 Calcium (8.4 - 10.2 MG/DL) 9.3 Troponin I (0.012 - 0.033 NG/ML) < 0.012 L NT-Pro-B Natriuret Pep (pg/mL) 1150.0 Coagulation INR (0.86 - 1.14) 1.1 APTT (27.2 - 37.9 SECONDS) 31.8 PT Patient/Control Mix (10.1 - 12.6 SECONDS) 12.2 D-Dimer (0 - 499 ng/mLFEU) 240 Hematology WBC (3.8 - 9.8 K/MM3) 5.1 RBC (3.95 - 5.67 M/MM3) 4.80 Hgb (12.4 - 16.7 G/DL) 13.6 Hct (35.9 - 49.5 %) 41.5 MCV (81.7 - 96.1 fL) 87 MCH (27.6 - 33.2 pg) 28.3 MCHC (32.9 - 35.5 %) 32.8 L RDW (12.1 - 15.2 %) 13.3 Plt Count (129 - 368 K/MM3) 273 Neut # (Auto) (2.0 - 7.6 K/mm3) 2.33 Lymph # (Auto) (1.0 - 3.8 K/mm3) 2.03 Billings # (Auto) (0.1 - 0.8 K/mm3) 0.66 Eos # (Auto) (0.0 - 0.2 K/mm3) 0.07 Baso # (Auto) (0.0 - 0.2 K/mm3) 0.01 Nucleated RBCs # (Man) (0.0 - 0.1 K/mm3) 0.00 Recent Impressions: RADIOLOGY - XR CHEST 1V 03/07 1305 Report Impression - Status: SIGNED Entered: 03/07/2023 1327 IMPRESSION: Left basilar airspace opacities which could reflect subsegmental atelectasis versus developing pneumonia. Impression By: [email or web address] - Amy Stein MD Lab Imaging Statement Laboratory radiographic studies reviewed and considered in the medical decision-making. Point of Care Testing Pulse Oximetry Interpretation Interpreted by me, Pulse oximetry normal Re-Evaluation MDM Free Text MDM Notes Free Text MDM Notes EKG interpreted 1259 atrial flutter [address] deviations EKG interpreted 1258 atrial flutter [address] deviations Chest pain improved with aspirin. d-dimer within normal. Atrial flutter without RVR, electrolytes stable. Elevated BNP, trial of lasix. Unable to reach EP but discussed with intelligence clerk Dr Valles, advised unlikely ACS as patient has normal cath but patient is being evaluated for repeat ablation and he will notify EP and Dr Palmer for admission. ED Course Medication(s) Ordered Medication(s) Ordered: Central Nervous System Agents Sig/Chitra Start time Last Medication Dose Route Stop Time Status Admin Aspirin 324 MG X1ED STA 03/07 1249 DC 03/07 PO 03/07 1250 1308 Electrolytic, Caloric, And William Sig/Chitra Start time Last Medication Dose Route Stop Time Status Admin Furosemide 40 MG X1ED STA 03/07 1602 DC 03/07 IV 03/07 1603 1616 Patient Discharge Departure Vital Signs/Condition Vital Signs First Documented: Result Date Time Pulse Ox 97 03/07 1249 B/P 114/71 03/07 1249 B/P Mean 85 03/07 1249 O2 Delivery Room air 03/07 1249 Temp 36.6 03/07 1249 Pulse 72 03/07 1249 Resp 16 03/07 1249 Last Documented: Result Date Time Pulse Ox 95 03/07 1331 B/P 114/71 03/07 1249 B/P Mean 85 03/07 1249 O2 Delivery Room air 03/07 1249 Temp 36.6 03/07 1249 Pulse 72 03/07 1249 Resp 16 03/07 1249 All vital signs available at the time of this entry have been reviewed. Clinical Impression Clinical Impression Primary Impression: Chest pain Secondary Impressions: Atrial flutter, CHF (congestive heart failure) Disposition Decision Hospitalize Request Time 171 Request Date 03/07/23 )( Accepts Hospitalization Yes )( Reason for Hospitalization continuation of stabilizing treatment for EMC )( Accepted Time 1712 )( Accepted Date 03/07/23 Discharge/Care Plan Admit Note I have spoken with the patient and/or caregivers. I have explained the patient's condition, diagnoses and treatment plan based on the information available to me at this time. I have answered the patient's and/or caregiver's questions and addressed any concerns. The patient and/or caregivers have as good an understanding of the patient's diagnosis, condition and treatment plan as can be expected at this point. The patient has been stabilized within the capability of the emergency department. The patient will be transported for further care and management or will be moved to an observation or inpatient service. I have communicated with the staff or medical practitioner taking over this patient's care. Critical Care CC Note 1 Total critical care time 60 minutes. Total critical care time documented does not include time spent on separately billed procedures or the services of residents, students, nurses or physician assistants. I personally saw and examined the patient. I have reviewed all diagnostic interpretations and treatment plans as written. I was present for the [place] portions of any procedures performed and the inclusive time noted in any critical care statement. Critical care time includes patient management by me, time spent at the patients bedside, time to review lab and imaging results, discussing patient care, documentation in the medical record, and time spent with the family or caregiver. at 1714 RPT #:[id number] END OF REPORT [facility] 2023-03-07 12:49:00 [facility] ([facility]) EMERGENCY PROVIDER REPORT REPORT#:[id number] REPORT STATUS: Signed DATE:03/07/23 TIME: 1249 PATIENT: MIGUEL DIAZ UNIT #: [id number] ROOM/BED: AGE: 52 SEX: M PCP PHYS: Jaspal Valles MD Cardiology SERVICE DT: AUTHOR: Mik Banegas LOCATION: [facility] * ALL edits or amendments must be made on the electronic/computer document * Provider in Triage - Adult Provider in Triage Initial Greet Date/Time 03/07/23 1248 Greet Note I have greeted and performed a focused rapid initial assessment of this patient. A comprehensive ED assessment and evaluation of the patient, analysis of all test results, and completion of the medical decision-making process will be conducted by additional ED providers. HPI Chief Complaint Chest pain MSE Complete The medical screening examination is complete. The patient does not need immediate medical attention. There are no acute symptoms of sufficient severity that the patient could reasonably be expected to develop serious impairment or dysfunction of body functions or organs. PMH-Provider in Triage Stated Complaint CHEST PAIN; LEFT ELBOW PAIN HAND NUMBNESS Allergies Coded Allergies: No Known Allergies (07/26/20) Home Medications Active Scripts ATORVASTATIN (LIPITOR) 40 MG PO DAILY 90 Days #90 TABS Ref 3 Prov: 07/27/20 at 1249 RPT #:[id number] END OF REPORT [facility] 2020-09-11 08:41:00 [phone] [address] PATIENT NAME: MIGUEL DIAZ ADMIT DATE: 09/09/20 ACCOUNT NO: [id number] ROOM NO: [facility] AGE: 49 REPORT TYPE: eTRANSESOPHAGEAL ECHO SEX: M ADMITTING PHYSICIAN:Javi Souza MD ATTENDING PHYSICIAN:Javi Souza MD *[facility]* [address] [place] [id number] Transesophageal Echocardiogram Patient: Miguel Diaz Study Date: 09/09/2020 BP: Location: [facility] URN: [id number] : 1970 Age: 49 Height: 70 in / 177.8 cm Gender: M Weight: 239.5 lb / 108.9 kg BMI/BSA: 34.4 kg/m 2 / 2.36 m 2 *Ordering Physician: * Javi Souza MD *Interpreting Physician: * Javi Souza MD *[employer] Consultant: * Shawnee Wall RDCS, RVT Indications: Ablation. Study data: Consent: The risks, benefits, and alternatives to the procedure were explained to the patient and informed consent was obtained. Procedure: Initial setup: The patient was brought to the laboratory in the fasting state.Intravenous access was obtained. Surface ECG leads and pulse oximetric signals were monitored. Sedation. Moderate sedation was administered by cardiology staff. Transesophageal echocardiography was performed. Topical anesthesia was obtained using viscous lidocaine. A transesophageal probe (SN: [id number]) was inserted by the attending intelligence clerk without difficulty. Images were obtained using a [employer] cardiac ultrasound machine. Image quality was adequate. Complete 2D, complete spectral Doppler, and color Doppler. Location: Catheterization laboratory. Patient status: Outpatient. Patient room number: 3. Study status: Scheduled. Study completion: The patient tolerated the procedure well. There were no complications. PATIENT NAME: MIGUEL DIAZ [id number] [place] [id number] PATIENT NAME: MIGUEL DIAZ ADMIT DATE: 09/09/20 ACCOUNT NO: [id number] [facility] 49 REPORT TYPE: eTRANSESOPHAGEAL ECHO SEX: M ADMITTING PHYSICIAN:Javi Souza MD ATTENDING PHYSICIAN:Javi Souza MD Findings Left ventricle: The cavity size is normal. Systolic function is normal. Right ventricle: The cavity size is normal. Systolic function is normal. Ventricular septum: The ventricular septum is normal. Left atrium: The atrium is normal in size. The appendage is of normal size. Emptying velocity is normal. There is no evidence of a thrombus in the atrial cavity or appendage. No spontaneous echo contrast is observed. Right atrium: The atrium is normal in size. There is no evidence of a thrombus in the atrial cavity or appendage. Atrial septum: No defect or patent foramen ovale is identified. Aorta: The aorta is normal. The ascending aorta is normal. Aortic valve: The valve is structurally normal. The valve is trileaflet. Cusp separation is normal. There is no evidence of stenosis. There is no regurgitation. Mitral valve: The valve is structurally normal. There is mild regurgitation. Tricuspid valve: The valve is structurally normal. There is trivial regurgitation. Pulmonic valve: The valve is structurally normal. There is trivial regurgitation. Conclusions Summary: 1. Left ventricle: The cavity size is normal. Systolic function is normal. 2. Left atrium: There is no evidence of a thrombus in the atrial cavity or appendage. No spontaneous echo contrast is observed. Prepared and electronically signed by Javi Souza MD 09/11/2020 08:41 PATIENT NAME: MIGUEL DIAZ [id number] [place] [id number] PATIENT NAME: MIGUEL DIAZ ADMIT DATE: 09/09/20 ACCOUNT NO: [id number] ROOM NO: Z.358 AGE: 49 REPORT TYPE: eTRANSESOPHAGEAL ECHO SEX: M ADMITTING PHYSICIAN:Javi Souza MD ATTENDING PHYSICIAN:Javi Souza MD at 0842 PATIENT NAME: MIGUEL DIAZ [facility] 2020-09-10 06:28:00 [id number] [place] [id number] PATIENT NAME: MIGUEL DIAZ ADMIT DATE: 09/09/20 ACCOUNT NO: [id number] ROOM NO: Z.358 AGE: 49 REPORT TYPE: CARDIAC CATHETERIZATION REPORT SEX: M ADMITTING PHYSICIAN:Javi Souza MD ATTENDING PHYSICIAN:Javi Souza MD PROCEDURE DATE: 09/09/2020 PROCEDURES: 1. Comprehensive electrophysiology study with atrial ablation. 2. Left atrial recordings. 3. Three-dimensional interatrial mapping. PREPROCEDURE DIAGNOSIS: Atrial flutter. POSTPROCEDURE DIAGNOSIS: Typical counterclockwise isthmus-dependent atrial flutter. DRY PRESS OPERATOR: Javi Souza M.D. ANESTHESIA: Local anesthesia with 1% lidocaine and moderate sedation. RN MANAGER: None. PROCEDURE IN DETAIL: After informed consent was obtained explaining to the patient the risks, benefits, and alternatives, the patient was brought to the cardiac catheterization lab in the fasting postabsorptive state. He was prepped and draped in sterile fashion. Local anesthesia was applied over both femoral veins with 1% lidocaine. Access to the veins was obtained using modified Seldinger technique with a micropuncture kit and ultrasound guidance. A locking 8-Mauritian sheath was placed in the right femoral vein. Two 6-Mauritian sheaths and one 7-Mauritian sheath were placed in the left femoral vein. All sheaths were aspirated and flushed and connected to heparinized saline infusion. Access to the right femoral artery was obtained using modified Seldinger technique with a micropuncture kit and ultrasound guidance. A 6-Mauritian sheath was advanced over the wire into the right femoral artery. The sheath was aspirated and flushed. It was secured in place with 0 Ethibond suture. The sheath was connected to a pressure transducer for arterial blood pressure monitoring. A 5-Mauritian Cournand catheter was advanced via a 6-Mauritian sheath on the left and placed in the right ventricle. A 6-Mauritian Cournand catheter was advanced via the 7-Mauritian sheath and placed in the HIS position. A 5-Mauritian Mathieu catheter was advanced via the remaining 6-Mauritian sheath and placed in the high right atrium. A deflectable decapolar catheter was advanced via the locking 8-Mauritian sheath and placed in the coronary sinus. A [place] deflectable sheath was advanced over a wire via the right femoral vein. The [place] sheath was aspirated and flushed and connected to heparinized saline infusion. A ThermoCool STSF ablation catheter was advanced via the [place] sheath into the right atrium. Three-dimensional interatrial mapping was performed. Left atrial recordings PATIENT NAME: MIGUEL DIAZ were made. Entrainment at the cavotricuspid isthmus confirmed isthmus dependence. Three-dimensional mapping revealed a typical counterclockwise atrial flutter. Multiple RF applications were made across the cavotricuspid isthmus, which resulted in termination of the atrial flutter. Isthmus block was verified with differential pacing. At the end of the procedure, all catheters were removed. The sheaths were aspirated and flushed. The sheaths were removed and hemostasis achieved with local pressure. The venous sheaths were removed and hemostasis achieved with local pressure. The 6-Mauritian arterial sheath was aspirated and flushed. A right femoral arteriogram was obtained via the sheath. After confirmation of adequate placement of the sheath, a 6-Mauritian Angio-Seal device was deployed without complication. The patient tolerated the procedure well with no complications. CONCLUSIONS: 1. Successful typical isthmus-dependent atrial flutter. 2. Estimated blood loss 15 mL. 3. No complications. Dictated By: Javi Souza MD WT: CATH:SAMI/PEPCATALINA/NTS Conf#: [id number]/DID#: [id number] cc: Jaspal Valles MD Authenticated by Javi Souza MD On 09/13/2020 09:54:59 AM at 0955 PATIENT NAME: MIGUEL DIAZ [facility] 2020-09-10 06:06:[address] [facility] Cardiology Progress Note REPORT#:[id number] REPORT STATUS: Signed DATE:09/10/20 TIME: 06 PATIENT: MIGUEL DIAZ UNIT #: [id number] ROOM/BED: [address] : 68 AGE: 49 SEX: M ATTEND: Javi Souza MD ADM AUTHOR: Javi Souza MD * ALL edits or amendments must be made on the electronic/computer document * Subjective Chief Complaint: Atrial Flutter Patient reports: No: chest pain, palpitations, shortness of breath. Objective General VS/I O: 24 hour I O ending at 0700: 09/10 0700 09/09 1900 Intake Total Output Total Balance Patient 108.8 kg Weight Weight Stated/Reported Measurement Method Vital Signs: Date Time Temp Pulse Resp B/P B/P Pulse O2 O2 Flow FiO2 Mean Ox Delivery Rate 09/10 040 98.2 77 16 102/71 81.5 96 Room air 09/09 2324 97.9 74 17 107/74 84.8 97 09/09 2302 97.9 70 17 99/70 79.4 96 09/09 2205 97.3 70 16 110/73 85.1 93 09/09 2124 97.4 09/09 2124 71 18 106/74 84.9 96 09/09 2054 97.9 72 16 94/66 75.7 93 PATIENT WEIGHT: Weight (lb): 239 Weight (oz): 13.81 Weight (kg): 108.800 Medications: Active Meds + DC'd Last 24 Hrs Enoxaparin Sodium 40 MG Q24H SUBQ Sodium Chloride 1,000 ML ONCE ONE IV (DC) Iopamidol 0 .STK-MED ONE .ROUTE (DC) Fentanyl Citrate 0 .STK-MED ONE .ROUTE (DC) Midazolam HCl 0 .STK-MED ONE .ROUTE (DC) Lidocaine 0 .STK-MED ONE .ROUTE (DC) Fentanyl Citrate 0 .STK-MED ONE .ROUTE (DC) Midazolam HCl 0 .STK-MED ONE .ROUTE (DC) Benzocaine 0 .STK-MED ONE .ROUTE (DC) Lidocaine HCl 0 .STK-MED ONE .ROUTE (DC) Lidocaine HCl 0 .STK-MED ONE .ROUTE (DC) Heparin Sodium/Dextrose 0 .STK-MED ONE IV (DC) Lidocaine 0 .STK-MED ONE .ROUTE (DC) Sodium Chloride 4,000 ML .STK-MED ONE IV (DC) Heparin Sodium/Sodium Chloride 500 ML .STK-MED ONE IV (DC) Iopamidol 0 .STK-MED ONE .ROUTE (DC) Heparin Sodium 0 .STK-MED ONE .ROUTE (DC) Sodium Chloride 1,000 ML Q13H IV Physical Exam General appearance: alert, awake, oriented Head/Eyes: atraumatic, normocephalic ENT: moist mucosal membranes Neck: no JVD Cardiovascular: CV assessment: regular rate and rhythm Respiratory: clear to auscultation, no distress Lower extremity: LE assessment: no edema Musculoskeletal: full range of motion Neuro/TRAFFIC CLERK: alert, oriented X 3, CN II-XII intact Skin: dry, intact Psychiatry: normal affect, normal judgment/insight, normal mood Results Findings/Data: Laboratory Tests 09/10 09/09 0356 1521 Chemistry Sodium (137 - 145 MMOL/L) 137 140 Potassium (3.5 - 5.1 MMOL/L) 3.6 4.2 Chloride (98 - 107 MMOL/L) 104 101 Carbon Dioxide (22 - 30 MMOL/L) 27 32 H Anion Gap (14 - 24 MMOL/L) 10 L BUN (9 - 20 MG/DL) 16 12 Creatinine (0.66 - 1.25 MG/DL) 1.20 1.30 H Glomerular Filtr Rate > 60 > 60 Glucose (74 - 106 MG/DL) 112 H 84 Calcium (8.4 - 10.2 MG/DL) 8.8 9.2 Magnesium (1.6 - 2.3 MG/DL) 1.9 Laboratory Tests 09/09 1521 Coagulation INR (0.86 - 1.14) 1.1 APTT (25.1 - 36.5 SECONDS) 32.3 PT Patient/Control Mix (9.5 - 12.7) 12.4 Laboratory Tests 09/10 09/09 0356 1521 Hematology WBC (3.8 - 9.8 K/MM3) 5.8 4.2 RBC (3.95 - 5.67 M/MM3) 4.78 5.16 Hgb (12.4 - 16.7 G/DL) 13.4 14.6 Hct (35.9 - 49.5 %) 43.2 46.6 MCV (81.7 - 96.1 fL) 90 90 MCH (27.6 - 33.2 pg) 28.0 28.3 MCHC (32.9 - 35.5 %) 31.0 L 31.3 L RDW (12.1 - 15.2 %) 13.5 13.5 Plt Count (129 - 368 K/MM3) 237 268 MPV (7.4 - 10.4 fl) 9.6 9.3 Neut % (Auto) (43 - 75 %) 59.0 45.2 Lymph % (Auto) (14 - 44 %) 29.7 40.8 [place] % (Auto) (4 - 13 %) 9.2 11.5 Eos % (Auto) (0 - 6 %) 1.6 2.1 Baso % (Auto) (0 - 2 %) 0.3 0.2 Neut # (Auto) (2.0 - 7.6 K/mm3) 3.42 1.89 L Lymph # (Auto) (1.0 - 3.8 K/mm3) 1.72 1.71 [place] # (Auto) (0.1 - 0.8 K/mm3) 0.53 0.48 Eos # (Auto) (0.0 - 0.2 K/mm3) 0.09 0.09 Baso # (Auto) (0.0 - 0.2 K/mm3) 0.02 0.01 Immature Gran % (0.0 - 2.0 %) 0.2 0.2 Nucleated RBC % (0 - 1.0 %) 0.0 0.0 Nucleated RBCs # (Man) (0.0 - 0.1 K/mm3) 0.00 0.00 Laboratory Tests 09/09 1321 Serology SARS-CoV-2 Ag (Rapid) (Negative) NEGATIVE Laboratory Tests 09/09 1521 Chemistry Magnesium (1.6 - 2.3 MG/DL) 1.9 Laboratory Tests 09/09 1521 Coagulation APTT (25.1 - 36.5 SECONDS) 32.3 Diagnosis, Assessment Plan Free Text DxA P Notes Free Text DxA P Notes: IMP: Atrial Flutter s/p RFA PLAN: d/c home f/u one week. at 0531 RPT #:[id number] END OF REPORT [facility] 2020-09-10 04:45:00 [phone] [place] [address] PATIENT NAME: MIGUEL DIAZ ADMIT DATE: 09/09/20 ACCOUNT NO: [id number] ROOM NO: [facility] AGE: 49 REPORT TYPE: ELECTROCARDIOGRAM SEX: M ADMITTING PHYSICIAN:Javi Souza MD ATTENDING PHYSICIAN:Javi Souza MD Order: [id number] Test Reason : AFlutter Test Date/Time Stamp: WedSep 10 2020 04:45:33 Blood Pressure : / mmHG Vent. Rate : 071 BPM Atrial Rate : 071 BPM P-R Int : 184 ms QRS Dur : 096 ms QT Int : 382 ms P-R-T Axes : 057 053 007 degrees QTc Int : 415 ms Normal sinus rhythm Normal ECG When compared with ECG of 27-JUL-2020 05:38, Significant changes have occurred Confirmed by JASPAL VALLES ([id number]) on 09/10/2020 6:45:41 AM Referred By: Self Referred Confirmed by:JASPAL VALLES at 0646 PATIENT NAME: MIGUEL DIAZ [facility] 2020-09-09 15:16:00 [phone] [address] PATIENT NAME: MIGUEL DIAZ ADMIT DATE: 09/09/20 ACCOUNT NO: [id number] ROOM NO: Z.358 AGE: 49 REPORT TYPE: ELECTROCARDIOGRAM SEX: M ADMITTING PHYSICIAN:Javi Souza MD ATTENDING PHYSICIAN:Javi Souza MD Order: [id number] Test Reason : AFIB Test Date/Time Stamp: WedSep 09 2020 15:16:22 Blood Pressure : / mmHG Vent. Rate : 072 BPM Atrial Rate : 072 BPM P-R Int : 242 ms QRS Dur : 108 ms QT Int : 388 ms P-R-T Axes : -08 066 069 degrees QTc Int : 424 ms Atrial flutter Nonspecific ST abnormality Abnormal ECG When compared with ECG of 27-JUL-2020 05:38, ST no longer depressed in Anterior leads Confirmed by JASPAL VALLES ([id number]) on 09/10/2020 6:45:27 AM Referred By: Self Referred Confirmed by:JASPAL VALLES at 0645 PATIENT NAME: MIGUEL DIAZ [facility] 2020-07-27 06:40:00 [phone] [address] PATIENT NAME: MIGUEL DIAZ ADMIT DATE: 07/27/20 ACCOUNT NO: [id number] ROOM NO: AGE: 49 REPORT TYPE: CARDIAC CATHETERIZATION REPORT SEX: M ADMITTING PHYSICIAN: ATTENDING PHYSICIAN:Jaspal Valles MD PROCEDURE DATE: 07/27/2020 SUPERVISOR PIPE FINISHING: Jaspal Valles M.D. INDICATION FOR THE PROCEDURE: Angina, abnormal stress test, cardiovascular risk factors. ESTIMATED BLOOD LOSS: Minimal. COMPLICATIONS: None. CONTRAST: 50 mL. TITLE OF THE PROCEDURE: Left heart catheterization. ANESTHESIA: Conscious sedation with Versed and fentanyl and 1% lidocaine for local anesthesia. FINAL DIAGNOSES: No angiographic coronary artery disease, elevated left ventricular end-diastolic pressure at 24, mild plaque in the right common femoral artery. RECOMMENDATIONS: Medical therapy. PROCEDURE IN DETAIL: After informed consent, the patient was brought to the cardiac catheterization lab in a stable fasting nonsedated state. He was prepped and draped in the usual sterile fashion. After conscious sedation, 1% lidocaine was administered to the right common femoral artery area for local anesthesia. A 6-Mauritian sheath was placed in the right common femoral artery using standard techniques and fluoroscopy. After heparinization, left coronary angiogram showed no angiographic coronary artery disease. There was also a large ramus intermedius. Right coronary angiogram showed no angiographic coronary artery disease. Left ventricular angiogram showed an ejection fraction of 65%. Left ventricular end-diastolic pressure of 24 and no wall motion abnormalities or aortic valve gradient. Right femoral angiogram showed a 25% plaque in the common femoral. The right groin was sealed using Angio-Seal. There were no complications. The patient tolerated the procedure well. The patient will be treated medically, was transferred back to the holding area for observation to be discharged later on today on medical therapy and risk factor modification. Dictated By: Jaspal Valles MD PATIENT NAME: MIGUEL IDAZCUONGZANDER WT: CATH:SAMI/KEYSHAWN/MICKY Conf#: [id number]/DID#: [id number] Authenticated by Jaspal Valles MD On 07/27/2020 09:04:42 AM at 0905 PATIENT NAME: MIGUEL DIAZASH [facility] 2020-07-27 05:38:00 [phone] [place] [address] PATIENT NAME: MIGUEL DIAZ ADMIT DATE: 07/27/20 ACCOUNT NO: [id number] ROOM NO: AGE: 49 REPORT TYPE: ELECTROCARDIOGRAM SEX: M ADMITTING PHYSICIAN: ATTENDING PHYSICIAN:Jaspal Valles MD Order: [id number] Test Reason : LEFT HEART CATHETERIZATION Test Date/Time Stamp: WedJul 27 2020 05:38:10 Blood Pressure : / mmHG Vent. Rate : 059 BPM Atrial Rate : 059 BPM P-R Int : 198 ms QRS Dur : 086 ms QT Int : 390 ms P-R-T Axes : 042 047 041 degrees QTc Int : 386 ms Sinus bradycardia Otherwise normal ECG No previous ECGs available Confirmed by JASPAL VALLES ([id number]) on 07/27/2020 7:52:55 AM Referred By: Jaspal Valles Confirmed by:JASPAL VALLES at 0753 [facility] 2020-07-26 07:18:00 [phone] [place] [address] PATIENT NAME: MONY DIAZ ADMIT DATE: ACCOUNT NO: [id number] ROOM NO: AGE: 49 REPORT TYPE: PREOP HISTORY AND PHYSICAL SEX: M ADMITTING PHYSICIAN: ATTENDING PHYSICIAN:Jaspal Valles MD PATIENT NAME: MONY DIAZ ADMIT DATE:07/27/2020 ADMISSION DATE: 07/27/2020 SUPERVISOR PIPE FINISHING: Jaspal Valles MD REASON FOR ADMISSION: Angina, abnormal stress test. For cardiac catheterization and possible revascularization. HISTORY OF PRESENT ILLNESS: Miguel is a 49-year-old patient with no previously documented coronary artery disease, who recently presented for evaluation of angina, dyspnea, and multiple cardiovascular risk factors. He had an echocardiogram, which showed hypertensive changes. He had an abnormal treadmill stress test with PACs and PVCs. He did not reach target and he went for 7 minutes and 31 seconds. He had significant ST changes. His Holter monitor showed several short paroxysmal supraventricular tachycardia runs. Given the patient's risk factors and the above-mentioned stress test findings and symptoms, he is here for cardiac catheterization to assess for possible revascularization. PAST MEDICAL HISTORY: Remarkable for low testosterone levels, lumbar disk disease, acid reflux, depression, and allergies. PAST SURGICAL HISTORY: None. ALLERGIES: NO KNOWN DRUG ALLERGIES. MEDICATIONS: He was taking only testosterone. I added aspirin to his regimen. SOCIAL HISTORY: The patient does smoke cigarettes, but not on a daily basis. He uses also cigar. He drinks socially. There is no history of street drug use. FAMILY HISTORY: The patient is adopted. His biological brother has hypertension, biological sister has sickle cell. He has one son who had a heart surgery as an . REVIEW OF SYSTEMS: Remarkable for fatigue, allergies, nonspecific rash, blurred vision, dizziness, dyspnea as mentioned above, nausea at times, nonspecific abdominal pain with indigestion, back pain, depression symptoms. No acute GI or symptoms. No TIAs or strokes. PHYSICAL EXAMINATION: PATIENT NAME: MONY DIAZ GENERAL: Reveals a pleasant middle-aged male, in no acute distress. VITAL SIGNS: Blood pressure 130/80, pulse 70 and regular, respiratory rate 16 and unlabored, and temperature afebrile. HEENT: Head, atraumatic and normocephalic. Eyes and ENT examination within normal for age. NECK: Supple. No jugular venous distention, bruits, or lymphadenopathy. Normal upstroke. LUNGS: Clear and resonant. HEART: Regular rate and rhythm with I/ systolic ejection murmur at the left lower sternal border. No gallops. ABDOMEN: Soft. No tenderness, no organomegaly, no masses or bruits. Abdomen is obese. EXTREMITIES: A 2+ distal pulses. No edema, cyanosis, or clubbing. NEUROLOGIC: Alert and oriented x3. Examination appears to be nonfocal. LABORATORY DATA: Pending. Noninvasive cardiovascular workup enclosed. IMPRESSION: This is a 49-year-old patient who presented with a recent angina, abnormal stress test. He is here for cardiac catheterization to assess for possible revascularization. Recommendation is to proceed with the above-mentioned procedure. The risks and benefits of the planned procedures were discussed in detail with the patient and he is willing to proceed. Rest as per orders. The patient was strongly advised to quit smoking. Dictated By: Jaspal Valles MD WT: PREOPHP:ELIZA/KEYSHAWN/MICKY Conf#: [id number]/DID#: [id number] Authenticated and Edited by Jaspal Valles MD On 07/26/20 4:53:05 PM at 5583 PATIENT NAME: JIMBOLEWISMONY [facility]
[2024-04-03 13:44] VITALS: BMI 35.4
[2024-04-03 15:58] LABS: Absolute Eosinophils 0.1 K/uL (0-0.5); Absolute Lymphocytes (CBC) 1.8 K/uL (0.7-4.9); Absolute Monocytes 0.7 K/uL (0.1-1.3); Absolute Neutrophil 4.4 K/uL (1.8-8.0); Basophils % 0.2 % (0-1.3); Eosinophils % 1.7 % (0-4.4); Hematocrit 40.7 % (39.6-49.0); Hemoglobin 13.3 g/dL (13.6-17.9); Lymphocytes % 25.1 % (15.3-44.8); MCHC 32.6 g/dL (32.0-36.0); MCV 86.1 fL (80-100); MPV 7.5 fL (7.6-11.3); Monocytes % 10.2 % (3.3-12.3); Neutrophils % 62.8 % (41.7-73.7); Nucleated Red Blood Cells % 0.1 % (0-0); Platelets 247 thou/uL (152-406); RBC Red Blood Cell Count 4.73 M/uL (4.33-5.43); Red Cell Distribution Width 14.1 % (12.1-15.2)
[2024-04-03 16:04] LABS: Albumin 3.7 g/dL (3.4-5.0); Anion Gap 5.4 mEq/L (5.0-15.0); Bilirubin Total 1.1 mg/dL (0.2-1.0); Globulin 3.7 g/dL (2.3-3.5); Magnesium 2.1 mg/dL (1.6-2.4); Potassium 4.4 mEq/L (3.5-5.1); Protein, Total 7.4 g/dL (6.4-8.2)
[2024-04-03] MEDS: MORPHINE 4 MG/ML SYR IV PRN (16:18)
[2024-04-03] MEDS: CEFEPIME 1 GM in NA CHLORIDE 0.9% 100 ML IV SCH (16:22)
[2024-04-03] MEDS: VANCOMYCIN 2 GM in NA CHLORIDE 0.9% 500 ML IVPB ONE (16:23)
--- NOTE | 2024-04-03 16:49 | RAD REPORT ---
EXAMINATION: TWO VIEW CHEST XR CLINICAL INDICATION: Male, 53 years old. [facility] hypertension TECHNIQUE: 2 view radiographs of the chest were performed. COMPARISON: 04/22/2013 FINDINGS: The lungs are well inflated and clear. No pneumothorax or sizable effusion. The heart is normal in si ze. Mediastinal contours are unremarkable. IMPRESSION: No acute or significant abnormalities.
[2024-04-03] MEDS: ACETAMINOPHEN 500 MG TAB PO PRN (20:38)
[2024-04-04] MEDS: ONDANSETRON 4 MG/2 ML VIAL IV PRN (01:58)
[2024-04-04] MEDS: VANCOMYCIN 2 GM in NA CHLORIDE 0.9% 500 ML IVPB SCH (03:15)
--- NOTE | 2024-04-04 07:12 | HP ---
Date of Admission: 04/03/2024 Chief Complaint: Painful swelling on the left thigh. History Of Present Illness: This is a 53-year-old pleasant male patient, who came into office with p ainful red swollen area of the left upper inner thigh for last 5 days. Denies any fever, chills, rajiv sea, vomiting. Denies any history of insect bite. This area of redness and swelling has progressive ly gotten worse in last 4 to 5 days as he reports. After he was evaluated at office, decision was [place] to admit him to the hospital with abscess of left upper inner thigh. Allergies: NO KNOWN ALLERGIES. Medications: Aspirin 81 mg daily, atorvastatin 40 mg daily, fluticasone nasal spray 1 spray each nos tril 2 times a day as needed for allergies, metoprolol succinate 25 mg daily, omeprazole 40 mg daily. Review of Systems: Dermatology: As mentioned above. All other systems reviewed and negative. Past Medical History: Significant for allergic rhinitis, impaired fasting glucose, obstructive sleep apnea, hypertension, hyperlipidemia, prior history of atrial flutter, supraventricular tachycardia, gastroesophageal reflux disease, and testicular hypofunction. Past Surgical History: Significant for ablation done on 09/09/2020 and March [address] and that has been successful and surgery for fracture of the right ring finger. Family History: The patient is adopted, details unknown about biological parents. Brother has sickl e cell disease. Sister with hypertension. Social History: Negative for smoking. Use of alcohol about 2 beers a day. Physical Examination: General: When he came into office today, blood pressure 122/86, pulse 64, respiratory rate 16, tempe rature 98.2, weight 249.6 pounds, height 71 inches. General: Awake, alert, oriented, not in distress. HEENT: Head atraumatic, normocephalic. Conjunctivae nonerythematous. Sclerae white. Mouth, no thr ush or edema noted. Ears/Nose, no mass, lesion, discharge noted. Neck: Supple. No JVD, lymph nodes, bruit, thyromegaly noted. Lungs: Bilateral good equal air entry. Clear to auscultation. No rhonchi. No rales. Heart: Normal heart sounds, no murmur or gallop. Abdomen: Soft, bowel sounds normal. No guarding, rigidity, tenderness, mass, hepatosplenomegaly, dis tention, or bruit noted. Extremities: Left upper medial thigh area has about 8 x 8 cm very tender swelling with induration. Overlying skin is red, warm, and tender to touch. There is no open wound. Skin: No rash, ulcer, cellulitis. Lymphatics: No lymph node enlargement in neck, supraclavicular, infraclavicular region. Neuro: No focal neurological deficit. Chest: Unremarkable. External Genitalia: Deferred. Rectal: Deferred. Laboratory Data: WBC 7, hemoglobin 13.3, platelets 247. Sodium 139, potassium 4.4, chloride 106, bi carb 32, BUN 13, creatinine 1.18, glucose 83. Liver function tests normal. Chest x-ray, no acute ca rdiopulmonary changes. Impression: 1.Abscess, left thigh. 2.Impaired fasting glucose. 3.Obstructive sleep apnea. 4.Hypertension. 5.Hyperlipidemia. 6.History of atrial flutter. 7.History of SVT. 8.Gastroesophageal reflux disease. 9.Testicular hypofunction. Plan: Admit the patient to hospital for further evaluation and management of this problem. The francisco j ent is appropriate for observation and plan is to go ahead and start him on IV antibiotic which is ce fepime and vancomycin and consult general surgeon, Dr. Guillen, for incision and drainage to be done to rangel. We will keep the patient n.p.o. after midnight. Pain medication was ordered, which was morp kayleen and Zofran for nausea, vomiting. For hyperlipidemia, we will continue his statin therapy per or daren and no need for further intervention. For gastroesophageal reflux disease, we will continue his pantoprazole in the hospital and no need for further intervention. Atrial flutter and SVT problems a re stable and no need for any further intervention for that. Details and plan of treatment discussed with the patient. Total time spent today was 80 minutes including evaluation and management at the office and making ar rangements for hospital admission and review of prior office records. DC/MODL Voice ID: [id number]
--- NOTE | 2024-04-04 07:27 | PN ---
Date of Progress Note: 04/04/2024 Subjective: The patient was seen this morning for followup. He was lying in bed, not in distress. No new complaints or problems reported overnight. Objective: Vital signs: Reviewed this morning; temperature 97.5, pulse 67, respiratory rate 18, blo od pressure 127/78, oxygen saturation 98%. HEENT: Unremarkable. Lungs: Clear to auscultation. Heart: Sounds normal. Abdomen: Soft. Bowel sounds normal. No guarding, rigidity, tenderness, distention. Extremities: Left upper medial thigh has approximately same size of swelling, which is 8 x 8 cm with induration, pink, warm, tender area in the center. I see about 1 cm bubble type of area right in th e center of this. The patient does have some surrounding faint, pink, warm skin color in the thigh s urrounding this indurated area. Impression: 1.Abscess, left thigh. 2.Impaired fasting glucose. 3.Hypertension. 4.Hyperlipidemia. 5.Obstructive sleep apnea. Plan: We will go ahead and keep the patient n.p.o. Continue current antibiotic and plan is to go ah ead and the patient is currently on vancomycin and cefepime. I will go ahead and discontinue cefepim e and instead of that, start him on Levaquin. The amount of redness that I see around indurated area is something new that I have seen today and as a result of that, I am going to change the antibiotic from cefepime to Levaquin and continue vanco mycin. Will follow up with Dr. Guillen. DC/CARTERL Voice ID: [id number] Report ID: [id number]
[2024-04-04] MEDS: PANTOPRAZOLE 40MG TABLET PO SCH (07:38)
[2024-04-04] MEDS: Levofloxacin 750mg IV 750 MG/150 ML BAG IV SCH (07:39)
[2024-04-04] MEDS: Ringers Lactate 1,000 ML IV ONE (10:05)
--- NOTE | 2024-04-04 10:09 | PREOPCON ---
Date of Consultation: 04/03/2024 Reason: Pain, left eye. History Of Present Illness: The patient is a 53-year-old gentleman who was admitted by Dr. Miller from his office yesterday with left upper inner thigh infection associated with swelling, redness, and pa in over the last week or so. The patient denies any sore throat, runny nose, cough, headaches, or di zziness. No chest pain. No fever or chills. The patient denies any history of trauma or insect bit e. There has been no drainage. The area of erythema and edema have gotten progressively worse. He was admitted, started on IV antibiotics, and I was consulted. Review of Systems: Otherwise unremarkable. Past Medical History: Significant for sleep apnea, hypertension, hyperlipidemia, history of A-flutte r and supraventricular tachycardia, GERD. Past Surgical History: Ablation and right finger surgery. Allergies: NO ALLERGIES. Social History: The patient does not smoke. Drinks occasionally. Family History: Noncontributory. Physical Examination: Vital Signs: Stable. He is afebrile. General: He is awake, alert, and oriented x3. Head and Neck: No masses. Chest: Clear. Heart: S1, S2. Abdomen: Soft. Extremities: Neurovascularly intact. Left upper medial thigh reveals approximately a 10 x 15 cm of erythema, warmth, edema associated with central induration and fluctuance consistent with abscess wit h cellulitis. Very tender. Neuro: Nonfocal. Laboratory Data: Significant for white count of 7.5. Chemistry reviewed, essentially unremarkable. Assessment: Left thigh abscess and cellulitis. Plan: Admit. N.p.o. IV fluid. IV antibiotic. To the OR for incision, drainage, and debridement o f left thigh abscess. The patient understands the risks, benefits, alternatives and agrees to proced ure. /MODL Voice ID: [id number] Report ID: [id number]
[2024-04-04] MEDS ORDERED: LIDOCAINE 2% MPF 5 ML VIAL ONE (10:42)
[2024-04-04] MEDS ORDERED: propofoL 200 MG/20 ML VIAL IV ONE (10:42)
[2024-04-04] MEDS ORDERED: ONDANSETRON 4 MG/2 ML VIAL ONE (10:42)
[2024-04-04] MEDS ORDERED: MIDAZOLAM HCL 2 MG/2 ML INJ ONE (10:42)
[2024-04-04] MEDS ORDERED: FENTANYL CITR 100 MCG/2 ML ONE (10:42)
[2024-04-04] MEDS: BUPIVACAINE 0.5% PF 10 ML VIAL ONE (11:41)
--- NOTE | 2024-04-04 11:59 | P.OP ---
Date of Service: 04/04/24 Preop diagnosis: Left thigh abscess and cellulitis Postop diagnosis: Same Procedure performed: Excisional debridement of left thigh abscess 6 x 2 cm to subcutaneous tissue Surgeon: Adonis Guillen MD [employer] Rep[employer]r: None Estimated blood loss: Minimal Specimen: Pus and necrotic tissue Findings: As above Anesthesia: General Complications: None Drains: None Fluids and blood products: Nonapplicable Disposition: Recovery room Operative note: Patient brought to the OR and placed in supine position. General anesthesia began. Patient placed in a semifrog-leg position. Patient prepped and draped in usual sterile fashion. Marcaine 0.5% infiltrated locally. 15 blade used to make approximately a 6 x 2 cm incision around a necrotic center of the wound. Subcutaneous tissue divided pus encountered and cultures done. Necrotic tissue debrided down through the deep subcutaneous tissue. Wound irrigated and bleeding controlled with cautery. There is surrounding induration tissue but no fluctuance noted. Wet-to-dry normal saline dressing change applied. Patient tolerated the procedure in stable condition and taken to recovery room in good general condition. CC: Dr. Miller's office
[2024-04-04] MEDS ORDERED: HYDROMORPHONE HCL 1 MG/ML INJ IV PRN (12:12)
[2024-04-04] MEDS: HYDROMORPHONE HCL 1 MG/ML INJ ONE (12:30)
[2024-04-04] MEDS: ATORVASTATIN 20 MG TAB PO SCH (20:02)
[2024-04-05 06:27] LABS: Absolute Lymphocytes (CBC) 1.3 K/uL (0.7-4.9); Absolute Monocytes 1.1 K/uL (0.1-1.3); Absolute Neutrophil 11.1 K/uL (1.8-8.0); Basophils % 0.1 % (0-1.3); Hematocrit 37.8 % (39.6-49.0); Hemoglobin 12.5 g/dL (13.6-17.9); Lymphocytes % 9.4 % (15.3-44.8); MCH 27.9 pg (27.0-35.0); MCHC 32.9 g/dL (32.0-36.0); MCV 84.7 fL (80-100); MPV 7.4 fL (7.6-11.3); Monocytes % 8.5 % (3.3-12.3); Platelets 290 thou/uL (152-406); RBC Red Blood Cell Count 4.46 M/uL (4.33-5.43); Red Cell Distribution Width 13.9 % (12.1-15.2)
[2024-04-05] MEDS ORDERED: AMLODIPINE 5 MG TAB PO PRN (07:47)
[2024-04-05] MEDS: HYDROCODONE/APAP 7.5/325 MG TAB PO PRN (08:47)
--- NOTE | 2024-04-05 11:11 | PN ---
Date of Progress Note: 04/05/2024 Subjective: Patient is awake and alert. No complaint. Objective: Vital Signs: Stable. Afebrile. Wound: Examination of the wound reveals decrease in the erythema and edema and warmth. The wound do es not have any purulence. Cultures pending. White count went up to 13.5 with a left shift. Assessment: Status post excisional debridement of a necrotizing infection on the left thigh. Recommendations: Continue IV antibiotics. Check cultures and adjust antibiotics accordingly. Reece nue wound care as ordered. We will await culture reports and adjust the antibiotics accordingly. /MODL Voice ID: [id number] Report ID: [id number]
--- NOTE | 2024-04-05 20:18 | PN ---
Date of Progress Note: 04/05/2024 Subjective: The patient was seen this morning for followup. No new complaints or problems reported by him. Objective: Vital Signs: Reviewed. HEENT: Unremarkable. Lungs: Clear to auscultation. Heart: Sounds normal. Abdomen: Soft. Bowel sounds normal. No guarding, rigidity, tenderness, distention. Extremities: No leg edema. Left medial thigh surgical dressing present, but redness that was noted around the indurated area yesterday has significantly improved today and almost completely resolved. Laboratory Data: WBC 13.5, hemoglobin 12.5, platelets 290. Impression: 1. Necrotizing fasciitis. 2. Abscess, left thigh. 3. Hypertension. 4. Hyperlipidemia. Plan: The patient's blood pressure this morning was 167/82, and I have ordered amlodipine for blood pressure and we will use it per order. We will continue current levaquin and vancomycin per order. Wound culture result is pending. I did have a detailed discussion with the patient in presence of his and informed him regarding surgical findings that Dr. Guillen contacted me with yesterday, but there was evidence of some pus in the soft tissue and this is indicating early necrotizing fasciitis and with that we will need to keep the patient in the hospital until we get the final results on the wound culture and then decide about sending him home with appropriate culture-specific antibiotics. After I saw him, I did discuss all these details with Dr. Guillen. He evaluated the patient and he informed me that the patient's wound appears good, and we do not need to change any antibiotics at this time. We will repeat blood work tomorrow. Ambulation was encouraged. I will see him tomorrow for followup. DC/MODL Voice ID: [id number] Report ID: [id number] LILLY
[2024-04-05 22:01] VITALS: O2SAT 97
[2024-04-06 05:52] LABS: Absolute Eosinophils 0.1 K/uL (0-0.5); Absolute Lymphocytes (CBC) 2.4 K/uL (0.7-4.9); Absolute Monocytes 0.6 K/uL (0.1-1.3); Absolute Neutrophil 5.8 K/uL (1.8-8.0); Basophils % 0.4 % (0-1.3); Hematocrit 36.6 % (39.6-49.0); Hemoglobin 11.9 g/dL (13.6-17.9); Lymphocytes % 26.7 % (15.3-44.8); MCHC 32.6 g/dL (32.0-36.0); MCV 85.9 fL (80-100); MPV 7.2 fL (7.6-11.3); Neutrophils % 64.9 % (41.7-73.7); Platelets 249 thou/uL (152-406); RBC Red Blood Cell Count 4.26 M/uL (4.33-5.43); Red Cell Distribution Width 14.3 % (12.1-15.2)
[2024-04-06 09:02] VITALS: BP 114/66; TEMP 98.2
[2024-04-06] MEDS ORDERED: CHLORHEXIDINE GLUCO 4% 120 ML TOP SCH (10:00)
[2024-04-06] MEDS ORDERED: MUPIROCIN 2% OINT 22GM TUBE TOP SCH (21:00)
--- NOTE | 2024-04-09 16:13 | DS ---
Date of Discharge: 04/06/2024 This patient discharged to go home. Physical Examination: HEENT: Unremarkable. Lungs: Clear to auscultation. Heart: Sounds normal. Abdomen: Soft. Bowel sounds normal. No guarding, rigidity, tenderness, distention. Extremities: No leg edema. Left medial thigh has a wound that was noted to have wound packing, but surrounding area has some induration, but overlying skin redness has resolved and tenderness has sign ificantly improved. Surrounding this indurated area, the patient had a faint pink discoloration of t he skin involving a significant area of the eye, which has completely resolved and it is back to norm al color. Hospital Course: This is a 53-year-old pleasant male patient who was admitted to the hospital after he came into office complaining of painful swelling of the left thigh. Please see dictated H and P f or more information. After the patient was evaluated at office, decision was made to admit him to [facility] for further evaluation and management of this abscess of the left thigh. General surgeon, Dr. Guillen, was consulted. The patient was started on empiric antibiotic. Initially, it was cefepime an d vancomycin and day after admission we noted that the patient had some faint pink discoloration of t he skin surrounding the thigh surrounding indurated area, which was new, so at that time we discontin ued cefepime and started him on Levaquin 750 mg IV daily along with vancomycin was continued. Dr. Venessa montgomery took him to surgery, performed incision and drainage, and wound culture was obtained which final result came back today growing MRSA. According to sensitivity result, it is sensitive to Levaquin an d vancomycin that the patient is currently taking in the hospital. With continuation of this antibio tic, his condition overall improved. Dr. Guillen was satisfied with his improvement and from his point of view, she has released the patient to go home. Medically, he is stable and improved and he was d ischarged to go home in stable condition today. Final Diagnoses: 1.Abscess, left thigh, organism methicillin-resistant Staphylococcus aureus. 2.Impaired fasting glucose. 3.Obstructive sleep apnea. 4.Hypertension. 5.Hyperlipidemia. 6.History of atrial flutter. 7.History of supraventricular tachycardia. 8.Gastroesophageal reflux disease. 9.Testicular hypofunction. DC/MODL Voice ID: [id number] Report ID: [id number]
--- NOTE | 2024-04-09 19:07 | DS ---
Date of Discharge: 04/06/2024 The patient's labs done during this hospitalization, upon admission, white count 7, hemoglobin 13.3, platelets 247, and that was on April 03, 2024. On April 05, WBC count went up to 13.5, hemoglobi n was 12.5, platelets 290, and today on day of discharge, WBC count 9, hemoglobin 11.9, platelets 249 . For chemistry upon admission, on April 03, sodium 139, potassium 4.4, chloride 106, bicarb 32, BUN 13, creatinine 1.18, glucose 83. Today, sodium 141, potassium 4, chloride 111, bicarb 30, BUN 1 0, creatinine 1.05, glucose 93. Discharge Medications And Instructions: 1.Continue all prior home medications. 2.Daily dressing changes as per instruction from Dr. Guillen. 3.Start following new antibiotics and prescription was sent to his pharmacy. 4.Levaquin 500 mg 1 tablet by mouth daily for 10 days. 5.Doxycycline 100 mg take 1 capsule by mouth 2 times a day with food for 10 days. 6.Avoid direct sunlight exposure while taking doxycycline. 7.Follow up at my office next week and follow up with Dr. Guillen a week after. 8.Total time spent 40 minutes. DC/MODL Voice ID: [id number] Report ID: [id number]
== END 2024-04-06 10:25 | disposition home or self-care (01) | DRG 570 ==
LOC: 2ND 12:51 → 4TH 13:38 → OBSVTOIN 04-04 14:06
PROVIDERS: ADMIT Internal Medicine; ATTEND Internal Medicine
PROC: 0JBM0ZZ Excision of Left Upper Leg Subcutaneous Tissue and Fascia, Open Approach (ICD-10-PCS; principal; 2024-04-04 10:30)
DX: L03.116 Cellulitis of left lower limb (principal); M72.6 Necrotizing fasciitis; I47.10 Supraventricular tachycardia, unspecified; I48.92 Unspecified atrial flutter; L02.416 Cutaneous abscess of left lower limb; I10 Essential (primary) hypertension; E78.5 Hyperlipidemia, unspecified; K21.9 Gastro-esophageal reflux disease without esophagitis; G47.33 Obstructive sleep apnea (adult) (pediatric); E29.1 Testicular hypofunction; B95.62 Methicillin resistant Staphylococcus aureus infection as the cause of diseases classified elsewhere; R73.01 Impaired fasting glucose
CPT/HCPCS: 36415; 71046; 80048; 80053; 80202; 83735; 85025; 87070; 87075; 87077; 87186; 87205; 88304; G0378; G0379; J0692; J1171; J2003; J2250; J2405; J2704; J3010; J7040; J7120